=== PATIENT | female | born 1965 | race Hispanic/Latino ===

== ENCOUNTER 2017-04-05 15:44 | Inpatient (IN) | payer SELFPAY ==
[2017-04-05] MEDS ORDERED: NACL 0.9% 500 ML 500 ML IV ONE (16:01)
[2017-04-05 16:53] LABS: Hematocrit 43.6 % (30.3-42.9); Mean Corpuscular HGB Conc 35 % (30-34); Mean Corpuscular Hemoglobin 32 pg (28-32); Mean Corpuscular Volume 93 fl (79-97); Platelet Count 307 K/mm3 (140-440); Red Blood Count 4.69 M/mm3 (3.65-5.03); Red Cell Distribution Width 13.2 % (13.2-15.2)
[2017-04-05 16:57] LABS: White Blood Count 27.3 K/mm3 (4.5-11.0)
[2017-04-05 17:02] LABS: INR 1.08 (0.87-1.13)
[2017-04-05 17:03] LABS: Alanine Aminotransferase 31 units/L (7-56); Albumin 3.6 g/dL (3.9-5); Albumin/Globulin Ratio 0.9 %; Alkaline Phosphatase 112 units/L (35-129); Anion Gap 20 mmol/L; BUN/Creatinine Ratio 24.44; Blood Urea Nitrogen 22 mg/dL (7-17); Calcium 9.9 mg/dL (8.4-10.2); Carbon Dioxide 23 mmol/L (22-30); Chloride 89.7 mmol/L (98-107); Glucose 235 mg/dL (65-100); Potassium 3.1 mmol/L (3.6-5.0); Sodium 130 mmol/L (137-145); Total Protein 7.7 g/dL (6.3-8.2)
[2017-04-05] MEDS ORDERED: NACL 0.9% 1000 ML 1,000 ML IV ONE (17:43)
[2017-04-05] MEDS ORDERED: VANCOMYCIN VIAL IV ONE (17:43)
[2017-04-05] MEDS ORDERED: CLEOCIN 900 MG/50 mL 900 MG/50 ML BAG IV ONE (17:43)
[2017-04-05] MEDS ORDERED: VANCOMYCIN PHARMACY TO DOSE IV SCH (18:00)
--- NOTE | 2017-04-05 18:44 | Cat Scan Report ---
FINAL REPORT EXAM: CT ABDOMEN PELVIS W CON HISTORY: extensive abdominal wall cellulitis/abscess TECHNIQUE: Dynamic helical CT scan through the abdomen and pelvis during and again after intravenous injection of iodinated contrast. Images are reconstructed in the sagittal and coronal planes. Oral contrast was not given. PRIORS: None. FINDINGS: The lung bases are clear. There is edema in the subcutaneous fat of the infraumbilical anterior abdominal wall of especially on the left. There is associated skin thickening. There is no evidence of abscess. There is a an umbilical hernia containing normal appearing fat. There are numerous stones in an otherwise normal-appearing gallbladder. The liver, pancreas, spleen and adrenal glands appear normal. The kidneys appear normal. There is a left ovarian dermoid containing mostly fat but also soft tissue attenuation and tooth like calcification. It measures 8.9 x 7.2 x 8.8 cm. The right ovary and uterus appear normal. The stomach appears grossly within normal limits. There are no abnormally dilated loops of bowel or acute inflammatory changes. A normal-appearing appendix is identified. There is diffuse atherosclerotic calcification in the abdominal aorta without aneurysm. There is advanced degenerative disc disease at L2-3 with severe loss of disc height, endplate sclerosis and osteophyte formation. There is spondylosis of the lower thoracic spine. IMPRESSION: 1. Infraumbilical subcutaneous fat edema and skin thickening is consistent with panniculitis. No evidence of abscess. 2. 8.9 cm left ovarian dermoid 3. Cholelithiasis without evidence of acute cholecystitis 4. Advanced degenerative disc disease at L2-3. 5. Umbilical hernia containing normal appearing fat.
[2017-04-05 18:48] LABS: Anisocytosis 1+; Basophils % (Manual) 0 % (0.0-1.8); Blastocytes % (Manual) 0 %
[2017-04-05 18:49] LABS: Diff Status Complete; Macrocytosis 1+; Platelet Estimate Consistent w Auto
--- NOTE | 2017-04-05 18:49 | Emergency Department Report ---
- General Chief complaint: Skin/Abscess/Foreign Body Stated complaint: SWOLLEN ABSCESS ON ABDOMEN Time Seen by Provider: 04/05/17 17:18 Source: patient, RN notes reviewed Mode of arrival: Ambulatory Limitations: No Limitations - History of Present Illness Initial comments: 51-year-old female presents to the emergency department complaining of possible abscess on her abdomen. Patient states she felt a bump on the left side her abdomen 5 days ago. She states that it began draining. She now reports swelling from the left side of her lower abdomen toward the center of her abdomen. She reports intermittent subjective fever at home. She denies chest pain, difficult breathing, nausea, or vomiting. There are no other complaints. MD complaint: abscess/boil -: Gradual, days(s) (5) Severity: moderate Consistency: constant Improves with: none Worsens with: none Context: none Associated symptoms: fever Treatments Prior to Arrival: none - Related Data Previous Rx's Medication Instructions Recorded Last Taken Type Amoxicillin [Trimox CAP] 500 mg PO Q8H #30 capsule 10/24/14 Unknown Rx Allergies Allergy/AdvReac Type Severity Reaction Status Date / Time latex Allergy Rash Verified 10/24/14 00:15 Abscess Boil HPI - HPI Chief Complaint: Skin/Abscess/Foreign Body Stated Complaint: SWOLLEN ABSCESS ON ABDOMEN Time Seen by Provider: 04/05/17 17:18 Duration: 5 Days Location: Abdomen Severity: Moderate History: Yes Fever Home Medications: Previous Rx's Medication Instructions Recorded Last Taken Type Amoxicillin [Trimox CAP] 500 mg PO Q8H #30 capsule 10/24/14 Unknown Rx Allergies/Adverse Reactions: Allergies Allergy/AdvReac Type Severity Reaction Status Date / Time latex Allergy Rash Verified 10/24/14 00:15 ED Review of Systems ROS: Stated complaint: SWOLLEN ABSCESS ON HAND Other details as noted in HPI Comment: All other systems reviewed and negative Constitutional: fever Gastrointestinal: abdominal pain Skin: as per HPI ED Past Medical Hx - Past Medical History Previous Medical History?: Yes Hx Hypertension: Yes Hx Diabetes: Yes Additional medical history: neuropathy - Surgical History Past Surgical History?: No - Family History Family history: no significant - Social History Smoking Status: Current Every Day Smoker Substance Use Type: Marijuana, Prescribed - Medications Home Medications: Home Medications Medication Instructions Recorded Confirmed Last Taken Type Amoxicillin [Trimox CAP] 500 mg PO Q8H #30 capsule 12/02/14 Unknown Rx ED Physical Exam - General Limitations: No Limitations General appearance: alert, in no apparent distress - Head Head exam: Present: atraumatic, normocephalic - Eye Eye exam: Present: normal appearance, PERRL, EOMI - ENT ENT exam: Present: normal exam, normal orophraynx, mucous membranes moist - Neck Neck exam: Present: normal inspection, full ROM. Absent: tenderness - Respiratory Respiratory exam: Present: normal lung sounds bilaterally. Absent: respiratory distress - Cardiovascular Cardiovascular Exam: Present: normal rhythm, tachycardia, normal heart sounds - GI/Abdominal GI/Abdominal exam: Present: soft, tenderness (mild tenderness to palpation the left lower abdomen), normal bowel sounds. Absent: distended, guarding, rebound - Extremities Exam Extremities exam: Present: normal inspection, full ROM. Absent: tenderness - Back Exam Back exam: Present: normal inspection, full ROM. Absent: tenderness - Neurological Exam Neurological exam: Present: alert, oriented X3. Absent: motor sensory deficit - Skin Skin exam: Present: warm, dry, other (large area of erythema and induration extending from just left of the umbilicus laterally to the left flank. On the lateral aspect of this area of erythema and induration there is an approximately 1.5 cm ulceration. There is no active drainage. Total area of induration measures approximately 12 cm x 40 cm.) ED Course Vital Signs 04/05/17 04/05/17 04/05/17 15:55 17:08 18:18 Temperature 98.2 F 98.6 F Pulse Rate 110 H 104 H Respiratory 20 18 Rate Blood Pressure 127/77 Blood Pressure 114/72 [Right] O2 Sat by Pulse 97 99 99 Oximetry ED Medical Decision Making - Lab Data Result diagrams: 04/05/17 16:29 04/05/17 16:29 - Radiology Data Radiology results: report reviewed, image reviewed CT of abdomen and pelvis reveals infraumbilical subcutaneous fat edema and skin thickening consistent with panniculitis. There is no evidence of abscess. There is an 8.9 cm left ovarian dermoid cyst. Cholelithiasis is noted without evidence of acute cholecystitis. There is also tenderness degenerative disc disease at levels L2 through L3. There is also a small umbilical hernia containing a normal-appearing fat. - Medical Decision Making Lab and imaging results reviewed and discussed with the patient. Blood cultures have been obtained. Patient is being given IV vancomycin and IV clindamycin. Patient is to be admitted by the hospitalist. - Differential Diagnosis cellulitis, abscess Critical care attestation.: If time is entered above; I have spent that time in minutes in the direct care of this critically ill patient, excluding procedure time. ED Disposition Clinical Impression: Cellulitis, abdominal wall Disposition: OP ADMITTED IP TO THIS HOSP Is pt being admited?: Yes Condition: Stable Referrals: PRIMARY CARE, [Primary Care Provider] - 3-5 Days Time of Disposition: 18:53
[2017-04-05] MEDS ORDERED: VANCOMYCIN 2,000 MG in NACL 0.9% 500 ML 500 ML IV ONE (19:00)
--- NOTE | 2017-04-05 19:27 | Admit Criteria Form ---
Admission Criteria Documentation: CELLULITIS Clinical Indications for Admission to Inpatient Care (Place 'X' for any and all applicable criteria): Admission is indicated for ANY ONE of the following(1)(2)(3)(4)(5): [ ]I. Limb-threatening infection [ ]II. High-risk comorbid condition as indicated by ANY ONE of the following: [ ]a) Uncontrolled diabetes (eg, HbA1c greater than 10% (0.1)) [ ]b) Cirrhosis [ ]c) Neutropenia [ ]d) Asplenia [ ]e) Immunosuppression [ ]f) Symptomatic heart failure [ ]III. Failure of outpatient therapy as indicated by ALL of the following: [ ]a) Progression or no improvement after adequate trial (minimum of 48 hours, with longer period for stable lower extremity infection) [ ]b) Adequate antibiotic regimen as indicated by use of ANY ONE of the following: [ ]i) First-generation cephalosporin (e.g., cephalexin) [ ]ii) Antistaphylococcal penicillin (e.g., dicloxacillin) [ ]iii) Penicillin-allergic patient regimen (clindamycin, extended-spectrum fluoroquinolone, or doxycycline) [ ]iv) Resistant organism (eg, methicillin-resistant Staphylococcus aureus) regimen (6) [ ]c) Outpatient intravenous therapy regimen is not appropriate due to ANY ONE of the following. (7)(8)(9)(10): [ ]i) It was tried and was not successful (eg, progression of infection). [ ]ii) It is not available or cannot be arranged in a clinically appropriate time frame (e.g., the next day). [ ]iii) Clinical presentation (eg, acuity of infection, rapidity of progression, confirmed or suspected bacteremia) is judged to require ALL of the following: [ ]1) Immediate initiation of intravenous therapy ( eg, cannot wait for next day) [ ]2) Intensity of patient monitoring and observation (eg, vital sign measurement, checks for infection progression) that cannot be provided at other than inpatient level of care [ ]IV. Mental status changes [ ]V. Bacteremia [ ]. Hemodynamic instability [ ]VII. Suspected necrotizing soft tissue infection (e.g., gas in tissue)(11)( 12) [ ]VIII. Orbital infection (13)(14) [ ]IX. Associated surgical procedure (e.g., abscess drainage, debridement) not amenable to outpatient, emergency department, or observation care [ ]X. Cutaneous gangrene [ ]XI. High fever (temperature greater than 39.5 degrees C (103.1 degrees F) (oral)) not responsive to outpatient, emergency department, or observation care therapy [X ]XIII. Inpatient admission required rather than observation care (Also use Cellulitis: Observation Care as appropriate) because of ANY ONE of the following : [ ]a) Periorbital or perineal infection that is severe or worsening [ ]b) Severe pain requiring acute inpatient management [ ]c) IV fluid to replace significant ongoing (e.g., for over 24 hours) losses (greater than 3L/m2 per day) [ ]d) Compartment syndrome monitoring (17) [ ]e) Strict or protective (eg, laminar flow) isolation [ ]f) Urgent debridement or skin grafting [ ]g) Bone or joint debridement [ ]h) Immediate inpatient surgery [X ]i) Other condition, treatment or monitoring requiring inpatient admission Extended stay beyond goal length of stay may be needed for (1)(18): [ ]a) Necrotizing soft tissue infection or fasciitis [ ]b) Gram-negative infection [ ]c) Methicillin-resistant Staphylococcal aureus (MRSA) infection [ ]d) Peripheral venous insufficiency with cellulitis [ ]e) Extensive edema [ ]f) Sepsis or continued Hemodynamic instability [ ]g) Continued high fever or mental status change [ ]h) Bacteremia [ ]i) Active serious comorbid conditions ( eg, heart failure, renal insufficiency) The original [facility], [facility] content created by [employer] has been revised. The portions of the content which have been revised are identified through the use of italic text or in bold, and [facility] has neither reviewed nor approved the modified material. All other unmodified content is copyright [facility] [employer] Please see references footnoted in the original [facility] [employer] edition 2016 Admission Criteria Met: Yes
[2017-04-05] MEDS ORDERED: TYLENOL PO PRN (19:33)
[2017-04-05] MEDS ORDERED: ZOFRAN IV PRN (19:33)
[2017-04-05] MEDS ORDERED: MILK OF MAGNESIA PO PRN (19:33)
[2017-04-05] MEDS ORDERED: DULCOLAX PR PRN (19:33)
[2017-04-05] MEDS ORDERED: D50W (25GM) IV PRN (19:34)
--- NOTE | 2017-04-05 19:49 | History and Physical Report ---
History of Present Illness Date of examination: 04/05/17 Date of admission: 04/05/2017 Chief complaint: Chief complaint: Abdominal wall redness for 5 days. History of present illness: 51-year-old female with history of type 2 diabetes comes in for left abdominal wall redness for the last 5 days. Initially she noted a small bump on the left flank which is present across the anterior abdominal wall after the right flank. Pain is about 7 on a scale of 1-10. Swelling of the abdominal wall and redness present. Also a small drainage in the left flank region where the infection started. Subjective fever at home. No chest pain. No palpitations. No difficulty breathing. No exacerbating or relieving factors. Review of System: Constitutional: no fever, no chills, no weight loss Ears, eyes, nose, mouth and throat: no nasal congestion, no nasal discharge, no sinus pressure, no vision change, no red eye. Neck: No neck pain or rigidity. Cardiovascular: No chest pain, no orthopnea, no palpitations, no leg swelling Respiratory: No shortness of breath, no cough, no congestion, no wheezing Gastrointestinal: abdominal pain, and abdominal wall redness present. Genitourinary : no dysuria, no hematuria Musculoskeletal: no joint swelling or muscle ache Integumentary: no rash, no pruritis Neurological: no parestthesias, no numbness, no tingling Endocrine: no cold or heat intolerance, no polyuria or polydipsia Hematologic/Lymphatic: no easy bruising, no easy bleeding, no gland swelling Allergic/Immunologic: no urticaria, no angioedema. Past History Past Medical History: diabetes, hypertension, hyperlipidemia Past Surgical History: No surgical history Social history: lives with family, smoking, other (marijuana which was prescribed.) Family history: hypertension Medications and Allergies Allergies Allergy/AdvReac Type Severity Reaction Status Date / Time latex Allergy Rash Verified 10/24/14 00:15 Home Medications Medication Instructions Recorded Confirmed Last Taken Type Amoxicillin [Trimox CAP] 500 mg PO Q8H #30 capsule 10/24/14 Unknown Rx Active Meds: Active Medications Acetaminophen (Tylenol) 650 mg PO Q4H PRN PRN Reason: Pain MILD(1-3)/Fever >100.5/ACOSTA Bisacodyl (Dulcolax) 10 mg VT QDAY PRN PRN Reason: Constipation unrelieved by MOM Dextrose (D50w (25gm)) 50 ml IV PRN PRN PRN Reason: Hypoglycemia Hydromorphone HCl (Dilaudid) 1 mg IV Q3H PRN PRN Reason: Pain , Severe (7-10) Vancomycin HCl 2,000 mg/ (Sodium Chloride) 540 mls @ 250 mls/hr IV ONCE.ED ONE Stop: 04/05/17 21:09 Vancomycin HCl 1,250 mg/ (Sodium Chloride) 275 mls @ 137.5 mls/hr IV Q12H ELROY Sodium Chloride (Nacl 0.45% 1000 Ml) 1,000 mls @ 75 mls/hr IV DIRECT ELROY Stop: 04/06/17 16:00 Clindamycin HCl (Cleocin 900 Mg/50 Ml) 900 mg in 50 mls @ 100 mls/hr IV Q8H ELROY PRN Reason: Protocol Levofloxacin/Dextrose (Levaquin 750mg/150ml) 750 mg in 150 mls @ 100 mls/hr IV Q24HR ELROY PRN Reason: Protocol Insulin Aspart (Novolog) 0 units SUB-Q ACHS ELROY PRN Reason: Protocol Magnesium Hydroxide (Milk Of Magnesia) 30 ml PO Q4H PRN PRN Reason: Constipation Ondansetron HCl (Zofran) 4 mg IV Q8H PRN PRN Reason: N/V unrelieved by Reglan Potassium Chloride (K-Dur) 40 meq PO ONCE ONE Stop: 04/05/17 19:43 Vancomycin HCl (Vancomycin Pharmacy To Dose) 1 each IV PKCONSULT ELROY PRN Reason: Protocol Exam - Physical Exam Narrative exam: Middle-aged female obese lying in bed comfortably. Answers questions appropriately. - Constitutional Vitals: Temp Pulse Resp BP Pulse Ox 98.6 F 104 H 18 114/72 99 04/05/17 17:08 04/05/17 17:08 04/05/17 17:08 04/05/17 17:08 04/05/17 18:18 General appearance: Present: no acute distress, well-nourished - EENT Eyes: Present: PERRL ENT: hearing intact, clear oral mucosa - Neck Neck: Present: supple, normal ROM - Respiratory Respiratory effort: normal Respiratory: bilateral: CTA - Cardiovascular Heart rate: 78 Rhythm: regular Heart Sounds: Present: S1 & S2. Absent: rub, click - Extremities Extremities: no ischemia, pulses intact, pulses symmetrical, No edema, normal temperature, normal color, Full ROM Peripheral Pulses: within normal limits - Abdominal General gastrointestinal: Present: tender, non-distended, normal bowel sounds, other (abdominal wall redness present from the left flank extending up to the right flank. Measuring about 20 cm and to 40 cm. There is a small drainage place on the left flank no active pus coming out.) Female genitourinary: Present: normal - Integumentary Integumentary: Present: clear, warm, dry - Musculoskeletal Musculoskeletal: gait normal, strength equal bilaterally - Psychiatric Psychiatric: appropriate mood/affect, intact judgment & insight - Neurologic Neurologic: CNII-XII intact, moves all extremities Results - Labs CBC & Chem 7: 04/05/17 16:29 04/05/17 16:29 Labs: Laboratory Last Values WBC 27.3 K/mm3 (4.5-11.0) H 04/05/17 16:29 RBC 4.69 M/mm3 (3.65-5.03) 04/05/17 16:29 Hgb 15.0 gm/dl (10.1-14.3) H 04/05/17 16:29 Hct 43.6 % (30.3-42.9) H 04/05/17 16:29 MCV 93 fl (79-97) 04/05/17 16:29 MCH 32 pg (28-32) 04/05/17 16:29 MCHC 35 % (30-34) H 04/05/17 16:29 RDW 13.2 % (13.2-15.2) 04/05/17 16:29 Plt Count 307 K/mm3 (140-440) 04/05/17 16:29 Add Manual Diff Complete 04/05/17 16:29 Total Counted 200 04/05/17 16:29 Seg Neuts % (Manual) 91.0 % (40.0-70.0) H 04/05/17 16:29 Band Neutrophils % 0 % 04/05/17 16:29 Lymphocytes % (Manual) 1.0 % (13.4-35.0) L 04/05/17 16:29 Reactive Lymphs % (Man) 0 % 04/05/17 16:29 Monocytes % (Manual) 7.0 % (0.0-7.3) 04/05/17 16:29 Eosinophils % (Manual) 1.0 % (0.0-4.3) 04/05/17 16:29 Basophils % (Manual) 0 % (0.0-1.8) 04/05/17 16:29 Metamyelocytes % 0 % 04/05/17 16: Myelocytes % 0 % 04/05/17 16: Promyelocytes % 0 % 04/05/17 16:29 Blast Cells % 0 % 04/05/17 16:29 Nucleated RBC % Not Reportable 04/05/17 16:29 Seg Neutrophils # Man 24.8 K/mm3 (1.8-7.7) H 04/05/17 16:29 Band Neutrophils # 0.0 K/mm3 04/05/17 16:29 Lymphocytes # (Manual) 0.3 K/mm3 (1.2-5.4) L 04/05/17 16:29 Abs React Lymphs (Man) 0.0 K/mm3 04/05/17 16:29 Monocytes # (Manual) 1.9 K/mm3 (0.0-0.8) H 04/05/17 16:29 Eosinophils # (Manual) 0.3 K/mm3 (0.0-0.4) 04/05/17 16:29 Basophils # (Manual) 0.0 K/mm3 (0.0-0.1) 04/05/17 16:29 Metamyelocytes # 0.0 K/mm3 04/05/17 16:29 Myelocytes # 0.0 K/mm3 04/05/17 16:29 Promyelocytes # 0.0 K/mm3 04/05/17 16:29 Blast Cells # 0.0 K/mm3 04/05/17 16:29 WBC Morphology Not Reportable 04/05/17 16:29 Hypersegmented Neuts Not Reportable 04/05/17 16:29 Hyposegmented Neuts Not Reportable 04/05/17 16:29 Hypogranular Neuts Not Reportable 04/05/17 16:29 Smudge Cells Not Reportable 04/05/17 16:29 Toxic Granulation Not Reportable 04/05/17 16:29 Toxic Vacuolation Not Reportable 04/05/17 16:29 Dohle Bodies Not Reportable 04/05/17 16:29 Pelger-Huet Anomaly Not Reportable 04/05/17 16:29 Rosa Rods Not Reportable 04/05/17 16:29 Platelet Estimate Consistent w auto 04/05/17 16:29 Clumped Platelets Not Reportable 04/05/17 16:29 Plt Clumps, EDTA Not Reportable 04/05/17 16:29 Large Platelets Not Reportable 04/05/17 16:29 Giant Platelets Not Reportable 04/05/17 16:29 Platelet Satelliting Not Reportable 04/05/17 16:29 Plt Morphology Comment Not Reportable 04/05/17 16:29 RBC Morphology Not Reportable 04/05/17 16:29 Dimorphic RBCs Not Reportable 04/05/17 16:29 Polychromasia Not Reportable 04/05/17 16:29 Hypochromasia Not Reportable 04/05/17 16:29 Poikilocytosis Not Reportable 04/05/17 16:29 Anisocytosis 1+ 04/05/17 16:29 Microcytosis Not Reportable 04/05/17 16:29 Macrocytosis 1+ 04/05/17 16:29 Spherocytes Not Reportable 04/05/17 16:29 Pappenheimer Bodies Not Reportable 04/05/17 16:29 Sickle Cells Not Reportable 04/05/17 16:29 Target Cells Not Reportable 04/05/17 16:29 Tear Drop Cells Not Reportable 04/05/17 16:29 Ovalocytes Not Reportable 04/05/17 16:29 Helmet Cells Not Reportable 04/05/17 16:29 [place] Bodies Not Reportable 04/05/17 16:29 [place] Rings Not Reportable 04/05/17 16:29 Gail Cells Not Reportable 04/05/17 16:29 Bite Cells Not Reportable 04/05/17 16:29 Crenated Cell Not Reportable 04/05/17 16:29 Elliptocytes Not Reportable 04/05/17 16:29 Acanthocytes (Spur) Not Reportable 04/05/17 16:29 Rouleaux Not Reportable 04/05/17 16:29 Hemoglobin C Crystals Not Reportable 04/05/17 16:29 Schistocytes Not Reportable 04/05/17 16:29 Malaria parasites Not Reportable 04/05/17 16:29 Umesh Bodies Not Reportable 04/05/17 16:29 Hem Pathologist Commnt No 04/05/17 16:29 PT 13.9 Sec. (12.2-14.9) 04/05/17 16:29 INR 1.08 (0.87-1.13) 04/05/17 16:29 VBG pH 7.380 (7.320-7.420) 04/05/17 16:29 Sodium 130 mmol/L (137-145) L 04/05/17 16:29 Potassium 3.1 mmol/L (3.6-5.0) L 04/05/17 16:29 Chloride 89.7 mmol/L (98-107) L 04/05/17 16:29 Carbon Dioxide 23 mmol/L (22-30) 04/05/17 16:29 Anion Gap 20 mmol/L 04/05/17 16:29 BUN 22 mg/dL (7-17) H 04/05/17 16:29 Creatinine 0.9 mg/dL (0.7-1.2) 04/05/17 16:29 Estimated GFR > 60 ml/min 04/05/17 16:29 BUN/Creatinine Ratio 24.44 % 04/05/17 16:29 Glucose 235 mg/dL (65-100) H 04/05/17 16:29 Lactic Acid 1.60 mmol/L (0.7-2.0) 04/05/17 16:29 Calcium 9.9 mg/dL (8.4-10.2) 04/05/17 16:29 Total Bilirubin 1.10 mg/dL (0.1-1.2) 04/05/17 16:29 AST 25 units/L (5-40) 04/05/17 16:29 ALT 31 units/L (7-56) 04/05/17 16:29 Alkaline Phosphatase 112 units/L (35-129) 04/05/17 16:29 Total Protein 7.7 g/dL (6.3-8.2) 04/05/17 16:29 Albumin 3.6 g/dL (3.9-5) L 04/05/17 16:29 Albumin/Globulin Ratio 0.9 % 04/05/17 16:29 Short CBC 04/05/17 Range/Units 16:29 WBC 27.3 H (4.5-11.0) K/mm3 Hgb 15.0 H (10.1-14.3) gm/dl Hct 43.6 H (30.3-42.9) % Plt Count 307 (140-440) K/mm3 [facility] 04/05/17 16:29 Sodium 130 L Potassium 3.1 L Chloride 89.7 L Carbon Dioxide 23 BUN 22 H Creatinine 0.9 Glucose 235 H Calcium 9.9 Liver Function 04/05/17 Range/Units 16:29 Total Bilirubin 1.10 (0.1-1.2) mg/dL AST 25 (5-40) units/L ALT 31 (7-56) units/L Alkaline Phosphatase 112 (35-129) units/L Albumin 3.6 L (3.9-5) g/dL - Imaging and Cardiology CT scan - abdomen: report reviewed (CT of abdomen showed no evidence of abscess. Infraumbilical subcutaneous fat edema and skin thickening consistent with panniculitis. 8.9 cm left ovarian dermoid cyst. Cholelithiasis without evidence of acute cholecystitis. Degenerative disc disease L2 through L3.) Assessment and Plan Assessment and plan: Assessment and gloria: 1. Abdominal wall cellulitis: Patient has severe redness of the anterior abdominal wall extending from left flank to right flank. Small drainage placed in the left flank present. No active pus coming out. Tender to touch. Indurated skin. Patient started on vancomycin IV and IV clindamycin and IV Levaquin. Patient has leukocytosis. Blood cultures and wound cultures ordered. Surgical consult ordered. No evidence of abscess on CT abdomen. 2. Type 2 diabetes mellitus: Patient initiated on metformin and insulin coverage. Check hemoglobin A1c. We will add insulin or oral hypoglycemics at the time of discharge depending on her blood glucose levels. 3. Hypertension: Initially blood pressure medication if blood pressure running high. Patient not on any blood pressure medications at this time. 4. Obesity: Patient counseled. 5. DVT prophylaxis: Lovenox 40 mg subcutaneous daily. Advance Directives: Yes (full code) VTE prophylaxis?: Chemical Plan of care discussed with patient/family: Yes
[2017-04-05] MEDS ORDERED: K-DUR PO ONE (20:00)
[2017-04-05] MEDS ORDERED: NACL 0.45% 1000 ML 1,000 ML IV SCH (20:00)
[2017-04-05] MEDS ORDERED: LEVAQUIN 750MG/150ML 750 MG/150 ML BAG IV SCH (21:00)
[2017-04-06] MEDS: NOVOLOG SUB-Q SCH ×5 (00:26→22:35)
[2017-04-06] MEDS: CLEOCIN 900 MG/50 mL 900 MG/50 ML BAG IV SCH ×4 (01:01→22:34)
[2017-04-06] MEDS ORDERED: VANCOMYCIN 1,250 MG in NACL 0.9% 250ML 250 ML IV SCH (06:00)
[2017-04-06 06:42] LABS: Hematocrit 37.8 % (30.3-42.9); Hemoglobin 12.9 gm/dl (10.1-14.3); Mean Corpuscular HGB Conc 34 % (30-34); Mean Corpuscular Hemoglobin 32 pg (28-32); Mean Corpuscular Volume 92 fl (79-97); Platelet Count 253 K/mm3 (140-440)
[2017-04-06 06:45] LABS: White Blood Count 21.1 K/mm3 (4.5-11.0)
[2017-04-06 07:01] LABS: Alanine Aminotransferase 37 units/L (7-56); Albumin/Globulin Ratio 0.8 %; Alkaline Phosphatase 104 units/L (35-129); Anion Gap 17 mmol/L; Blood Urea Nitrogen 15 mg/dL (7-17); Calcium 9.1 mg/dL (8.4-10.2); Carbon Dioxide 25 mmol/L (22-30); Chloride 90.1 mmol/L (98-107); Glucose 123 mg/dL (65-100); Potassium 3.1 mmol/L (3.6-5.0); Sodium 129 mmol/L (137-145); Total Protein 6.6 g/dL (6.3-8.2)
--- NOTE | 2017-04-06 07:12 | XRay Report ---
Single view chest: History: Possible sepsis. Findings: Normal cardiomediastinal silhouette. Trachea is midline. No consolidation, pneumothorax or pleural effusion. Impression: No acute cardiopulmonary findings.
--- NOTE | 2017-04-06 09:04 | Progress Note ---
Assessment and Plan Assessment and plan: 51-year-old woman with past medical history hypertension diabetes and hyperlipidemia who presented with left-sided abdominal wall swelling drainage and pain. Found to have left abdominal wall panniculitis. 1. Sepsis Patient met sepsis criteria, continue sepsis protocol, continue IV fluids, continue IV antibiotics. 2. Left abdominal wall panniculitis Continue IV antibiotics,, continue Levaquin and clindamycin, discontinue vancomycin today. Follow-up surgery consults Infectious disease consult 3. Type 2 diabetes Continue metformin, continue insulin sliding scale 4. Hyponatremia Continue normal saline IV fluids 5. Hypokalemia Has been repleted, we'll recheck. DVT prophylaxis: Lovenox History Interval history: Continues to complain of left-sided abdominal wall swelling, pain which is dull 4 out of 10, exacerbated by laying on it, relieved by pain medications. Denies fever, denies chills denies any significant drainage today. Hospitalist Physical - Physical exam Narrative exam: General: Patient appears well in no distress HEENT: MMM, EOMI cardiac: S1-S2 heard lungs: clear to auscultation, abdomen: soft, nontender, nondistended bowel sounds positive extremities: no edema clubbing or cyanosis Skin: abdominal wall swelling, erythema and tenderness involving the entire pannus, no drainage, no open wounds Neuro: no focal deficit Psych: appropriate behavior and mood, cognition intact - Constitutional Vitals: Temp Pulse Resp BP Pulse Ox 99.9 F H 109 H 20 123/58 95 04/05/17 23:50 04/05/17 23:50 04/05/17 23:50 04/05/17 23:50 04/05/17 23:50 General appearance: Present: no acute distress, well-nourished Results - Labs CBC & Chem 7: 04/06/17 05:14 04/06/17 05:14 Labs: Laboratory Last Values WBC 21.1 K/mm3 (4.5-11.0) H 04/06/17 05:14 RBC 4.10 M/mm3 (3.65-5.03) 04/06/17 05:14 Hgb 12.9 gm/dl (10.1-14.3) 04/06/17 05:14 Hct 37.8 % (30.3-42.9) 04/06/17 05:14 MCV 92 fl (79-97) 04/06/17 05:14 MCH 32 pg (28-32) 04/06/17 05:14 MCHC 34 % (30-34) 04/06/17 05:14 RDW 13.0 % (13.2-15.2) L 04/06/17 05:14 Plt Count 253 K/mm3 (140-440) 04/06/17 05:14 Add Manual Diff Complete 04/05/17 16:29 Total Counted 200 04/05/17 16:29 Seg Neuts % (Manual) 91.0 % (40.0-70.0) H 04/05/17 16:29 Band Neutrophils % 0 % 04/05/17 16:29 Lymphocytes % (Manual) 1.0 % (13.4-35.0) L 04/05/17 16:29 Reactive Lymphs % (Man) 0 % 04/05/17 16:29 Monocytes % (Manual) 7.0 % (0.0-7.3) 04/05/17 16:29 Eosinophils % (Manual) 1.0 % (0.0-4.3) 04/05/17 16:29 Basophils % (Manual) 0 % (0.0-1.8) 04/05/17 16:29 Metamyelocytes % 0 % 04/05/17 16:29 Myelocytes % 0 % 04/05/17 16:29 Promyelocytes % 0 % 04/05/17 16:29 Blast Cells % 0 % 04/05/17 16:29 Nucleated RBC % Not Reportable 04/05/17 16:29 Seg Neutrophils # Man 24.8 K/mm3 (1.8-7.7) H 04/05/17 16:29 Band Neutrophils # 0.0 K/mm3 04/05/17 16:29 Lymphocytes # (Manual) 0.3 K/mm3 (1.2-5.4) L 04/05/17 16:29 Abs React Lymphs (Man) 0.0 K/mm3 04/05/17 16:29 Monocytes # (Manual) 1.9 K/mm3 (0.0-0.8) H 04/05/17 16:29 Eosinophils # (Manual) 0.3 K/mm3 (0.0-0.4) 04/05/17 16:29 Basophils # (Manual) 0.0 K/mm3 (0.0-0.1) 04/05/17 16:29 Metamyelocytes # 0.0 K/mm3 04/05/17 16:29 Myelocytes # 0.0 K/mm3 04/05/17 16:29 Promyelocytes # 0.0 K/mm3 04/05/17 16:29 Blast Cells # 0.0 K/mm3 04/05/17 16:29 WBC Morphology Not Reportable 04/05/17 16:29 Hypersegmented Neuts Not Reportable 04/05/17 16:29 Hyposegmented Neuts Not Reportable 04/05/17 16:29 Hypogranular Neuts Not Reportable 04/05/17 16:29 Smudge Cells Not Reportable 04/05/17 16:29 Toxic Granulation Not Reportable 04/05/17 16:29 Toxic Vacuolation Not Reportable 04/05/17 16:29 Dohle Bodies Not Reportable 04/05/17 16:29 Pelger-Huet Anomaly Not Reportable 04/05/17 16:29 Rosa Rods Not Reportable 04/05/17 16:29 Platelet Estimate Consistent w auto 04/05/17 16:29 Clumped Platelets Not Reportable 04/05/17 16:29 Plt Clumps, EDTA Not Reportable 04/05/17 16:29 Large Platelets Not Reportable 04/05/17 16:29 Giant Platelets Not Reportable 04/05/17 16:29 Platelet Satelliting Not Reportable 04/05/17 16:29 Plt Morphology Comment Not Reportable 04/05/17 16:29 RBC Morphology Not Reportable 04/05/17 16:29 Dimorphic RBCs Not Reportable 04/05/17 16:29 Polychromasia Not Reportable 04/05/17 16:29 Hypochromasia Not Reportable 04/05/17 16:29 Poikilocytosis Not Reportable 04/05/17 16:29 Anisocytosis 1+ 04/05/17 16:29 Microcytosis Not Reportable 04/05/17 16:29 Macrocytosis 1+ 04/05/17 16:29 Spherocytes Not Reportable 04/05/17 16:29 Pappenheimer Bodies Not Reportable 04/05/17 16:29 Sickle Cells Not Reportable 04/05/17 16:29 Target Cells Not Reportable 04/05/17 16:29 Tear Drop Cells Not Reportable 04/05/17 16:29 Ovalocytes Not Reportable 04/05/17 16:29 Helmet Cells Not Reportable 04/05/17 16:29 [place] Bodies Not Reportable 04/05/17 16:29 Calvin Rings Not Reportable 04/05/17 16:29 Mobile Cells Not Reportable 04/05/17 16:29 Bite Cells Not Reportable 04/05/17 16:29 Crenated Cell Not Reportable 04/05/17 16:29 Elliptocytes Not Reportable 04/05/17 16:29 Acanthocytes (Spur) Not Reportable 04/05/17 16:29 Rouleaux Not Reportable 04/05/17 16:29 Hemoglobin C Crystals Not Reportable 04/05/17 16:29 Schistocytes Not Reportable 04/05/17 16:29 Malaria parasites Not Reportable 04/05/17 16:29 Umesh Bodies Not Reportable 04/05/17 16:29 Hem Pathologist Commnt No 04/05/17 16:29 PT 13.9 Sec. (12.2-14.9) 04/05/17 16:29 INR 1.08 (0.87-1.13) 04/05/17 16:29 VBG pH 7.380 (7.320-7.420) 04/05/17 16:29 Sodium 129 mmol/L (137-145) L 04/06/17 05:14 Potassium 3.1 mmol/L (3.6-5.0) L 04/06/17 05:14 Chloride 90.1 mmol/L (98-107) L 04/06/17 05:14 Carbon Dioxide 25 mmol/L (22-30) 04/06/17 05:14 Anion Gap 17 mmol/L 04/06/17 05:14 BUN 15 mg/dL (7-17) 04/06/17 05:14 Creatinine 0.6 mg/dL (0.7-1.2) L 04/06/17 05:14 Estimated GFR > 60 ml/min 04/06/17 05:14 BUN/Creatinine Ratio 25.00 % 04/06/17 05:14 Glucose 123 mg/dL (65-100) H 04/06/17 05:14 POC Glucose 125 (70-105) H 04/06/17 05:58 Hemoglobin A1c 6.7 % (4-6) H 04/05/17 16:29 Lactic Acid 1.60 mmol/L (0.7-2.0) 04/05/17 19:18 Calcium 9.1 mg/dL (8.4-10.2) 04/06/17 05:14 Total Bilirubin 0.90 mg/dL (0.1-1.2) 04/06/17 05:14 AST 27 units/L (5-40) 04/06/17 05:14 ALT 37 units/L (7-56) 04/06/17 05:14 Alkaline Phosphatase 104 units/L (35-129) 04/06/17 05:14 Total Protein 6.6 g/dL (6.3-8.2) 04/06/17 05:14 Albumin 3.0 g/dL (3.9-5) L 04/06/17 05:14 Albumin/Globulin Ratio 0.8 % 04/06/17 05:14 - Imaging and Cardiology CT scan - abdomen: image reviewed (abdominal wall edema consistent with cellulitis)
[2017-04-06 09:31] LABS: Basophils % (Manual) 0 % (0.0-1.8); Blastocytes % (Manual) 0 %; Eosinophils % (Manual) 0 % (0.0-4.3)
[2017-04-06 09:32] LABS: Anisocytosis 1+; Diff Status Complete; Platelet Estimate Cons
--- NOTE | 2017-04-06 14:58 | Consultation ---
History of Present Illness - Reason for Consult Consult date: 04/06/17 Cellulitis - History of Present Illness Ms. Anderson is a 51-year-old woman with DM2 (a1c ~6%) who presented with abdominal wall cellulitis. She describes an ample abdominal pannus s/p significant weight loss over several years. She has occasional "numbness" along her abdominal wall as a result. She does not recall a specific injury to her abdomen, but says she felt "something like a boil" at her left flank. Over the subsequent 1-2 days, she developed marked erythema and edema over the left lower abdominal wall. She presented here for assessment. A CT pelvis showed panniculitis with no overt abscess. She is on empiric Vancomycin, Levaquin and Clindamycin with significant improvement of local swelling. She describes local pain, but denies vesicles or blisters. Past History Past Medical History: diabetes, hypertension, hyperlipidemia Past Surgical History: No surgical history Social history: lives with family, smoking, other (marijuana which was prescribed.) Family history: hypertension Medications and Allergies Allergies Allergy/AdvReac Type Severity Reaction Status Date / Time latex Allergy Rash Verified 10/24/14 00:15 Home Medications Medication Instructions Recorded Confirmed Last Taken Type Amoxicillin [Trimox CAP] 500 mg PO Q8H #30 capsule 10/24/14 04/06/17 09/01/16 Rx 500 Active Meds: Active Medications Acetaminophen (Tylenol) 650 mg PO Q4H PRN PRN Reason: Pain MILD(1-3)/Fever >100.5/ACOSTA Last Admin: 04/06/17 09:45 Dose: 650 mg Bisacodyl (Dulcolax) 10 mg IA QDAY PRN PRN Reason: Constipation unrelieved by MOM Dextrose (D50w (25gm)) 50 ml IV PRN PRN PRN Reason: Hypoglycemia Enoxaparin Sodium (Lovenox) 40 mg SUB-Q QDAY@2200 [facility] Hydromorphone HCl (Dilaudid) 1 mg IV Q3H PRN PRN Reason: Pain , Severe (7-10) Sodium Chloride (Nacl 0.45% 1000 Ml) 1,000 mls @ 75 mls/hr IV DIRECT [facility] Stop: 04/06/17 16:00 Last Admin: 04/06/17 00:23 Dose: 75 mls/hr Clindamycin HCl (Cleocin 900 Mg/50 Ml) 900 mg in 50 mls @ 100 mls/hr IV Q8H [facility] PRN Reason: Protocol Last Admin: 04/06/17 06:01 Dose: Not Given Levofloxacin/Dextrose (Levaquin 750mg/150ml) 750 mg in 150 mls @ 100 mls/hr IV Q24H [facility] PRN Reason: Protocol Last Admin: 04/06/17 01:15 Dose: 100 mls/hr Insulin Aspart (Novolog) 0 units SUB-Q ACHS [facility] PRN Reason: Protocol Last Admin: 04/06/17 07:52 Dose: Not Given Magnesium Hydroxide (Milk Of Magnesia) 30 ml PO Q4H PRN PRN Reason: Constipation Ondansetron HCl (Zofran) 4 mg IV Q8H PRN PRN Reason: N/V unrelieved by Felice Last Admin: 04/05/17 22:17 Dose: 4 mg Review of Systems All systems: negative ((all other systems reviewed and negative except noted below):) Constitutional: no fever, no chills, no sweats Cardiovascular: no chest pain, no shortness of breath Respiratory: no cough Gastrointestinal: abdominal pain (abdominal wall pain), no nausea, no vomiting, no diarrhea Genitourinary Female: no dysuria Integumentary: no rash, no pruritis Physical Examination - Constitutional Vitals: Vital Signs Temp Pulse Resp BP Pulse Ox 99.1 F 99 H 20 111/59 95 04/06/17 08:00 04/06/17 08:00 04/06/17 08:00 04/06/17 08:00 04/06/17 08:00 Temperature -Last 24 Hours Temperature 99.1 F Temperature 99.9 F Temperature 98.6 F Temperature 98.4 F General appearance: Present: no acute distress, obese - Neck Neck: Present: supple - Respiratory Respiratory effort: normal Respiratory: bilateral: CTA - Cardiovascular Rhythm: regular Heart Sounds: Present: S1 & S2 - Extremities Extremities: No edema - Abdominal General gastrointestinal: Present: soft, normal bowel sounds, other (large abdominal pannus with mild induration and resolving erythema over the left lower quadrant/ flank, crosses umbilical midline slightly; two discrete and resolving pustules, no vesicles or local necrosis seen) - Integumentary Integumentary: Absent: rash - Psychiatric Psychiatric: appropriate mood/affect Results - Labs CBC & Chem 7: 04/06/17 05:14 04/06/17 05:14 Labs: Abnormal lab results 04/05/17 04/06/17 04/06/17 Range/Units 21:57 05:14 05:14 WBC 21.1 H (4.5-11.0) K/mm3 RDW 13.0 L (13.2-15.2) % Seg Neuts % (Manual) 90.0 H (40.0-70.0) % Lymphocytes % (Manual) 2.0 L (13.4-35.0) % Seg Neutrophils # Man 19.0 H (1.8-7.7) K/mm3 Lymphocytes # (Manual) 0.4 L (1.2-5.4) K/mm3 Monocytes # (Manual) 1.5 H (0.0-0.8) K/mm3 Sodium 129 L (137-145) mmol/L Potassium 3.1 L (3.6-5.0) mmol/L Chloride 90.1 L (98-107) mmol/L Creatinine 0.6 L (0.7-1.2) mg/dL Glucose 123 H (65-100) mg/dL POC Glucose 173 H (70-105) Albumin 3.0 L (3.9-5) g/dL 04/06/17 Range/Units 05:58 WBC (4.5-11.0) K/mm3 RDW (13.2-15.2) % Seg Neuts % (Manual) (40.0-70.0) % Lymphocytes % (Manual) (13.4-35.0) % Seg Neutrophils # Man (1.8-7.7) K/mm3 Lymphocytes # (Manual) (1.2-5.4) K/mm3 Monocytes # (Manual) (0.0-0.8) K/mm3 Sodium (137-145) mmol/L Potassium (3.6-5.0) mmol/L Chloride (98-107) mmol/L Creatinine (0.7-1.2) mg/dL Glucose (65-100) mg/dL POC Glucose 125 H (70-105) Albumin (3.9-5) g/dL Microbiology 04/05/17 17:18 Peripheral/Venous Blood Culture - Preliminary Culture in Progress 04/05/17 16:29 Peripheral/Venous Blood Culture - Preliminary Culture in Progress - Imaging and Cardiology Chest x-ray: report reviewed (no acute process) CT scan - abdomen: report reviewed (infraumbilical panniculitis; cholelithiasis without cholecystitis) Assessment and Plan - Patient Problems (1) Cellulitis, abdominal wall Current Visit: Yes Status: Acute Plan to address problem: 1. Continue Vancomycin and Clindamycin for now. Will discontinue Levaquin. 2. Await results of blood culture. 3. Anticipate oral Doxycycline 100mg PO BID and topical Clinda gel to abdominal wall for a duration of 7 days. 4. I discussed potential side effects of Doxycycline and advised patient to take pills with water and avoid direct, prolonged sunlight while taking. 5. Zoster sine herpete considered, but patient notes significant improvement with current antimicrobials.
[2017-04-06] MEDS: NACL 0.9% 1000 ML 1,000 ML IV SCH (17:29)
--- NOTE | 2017-04-06 19:37 | Consultation ---
HISTORY OF PRESENT ILLNESS: I was called by Dr. Rosas to see this patient. She is a 51-year-old white female. She is a known case of diabetes for the last 7 to 8 years. She is on metformin 1 g every day. She came because of pain to the lower abdomen for about 5 to 7 days duration. It is bothering her and she felt feverish. She never had this before. She never had any abdominal operations. Allergic reactions were denied. PHYSICAL EXAMINATION: GENERAL: Showed a well-preserved, obese white female. She is in no distress. She is on some pain, however, to the lower abdomen below the umbilicus on both sides. HEAD AND NECK: Essentially negative. BREASTS: Symmetric. No evidence of specific masses. CHEST: Essentially clear. HEART: Sounds normal. ABDOMEN: Protuberant, soft, benign looking to me superiorly, and inferiorly she had a large area from the mid axillary line to the other side with severe tenderness and redness. There is no evidence of any gross infection. She has a small laceration barely about 0.5 cm on the left side. I could not feel anything specific otherwise of diffuse tenderness, no evidence for any specific masses. EXTREMITIES: Showed no significant edema. IMPRESSION: Severe cellulitis. I doubt whether there is any necrotizing fasciitis element, exogenous obesity, diabetes mellitus, mid abdominal hernia seen on the CAT scan. PLAN: We will adjust antibiotics as per Infectious Disease. Dr. Miles was called to see her and I did indicate to the patient that if there is nothing surgical would just press on with the antibiotics and go from there. On the CAT scan, we did see some stones in the gallbladder. JOB# [id number] RBK/NTS
[2017-04-06] MEDS ORDERED: LOVENOX SUB-Q SCH (22:00)
[2017-04-07] MEDS: DILAUDID IV PRN ×2 (05:02→12:09)
[2017-04-07] MEDS: CLEOCIN 900 MG/50 mL 900 MG/50 ML BAG IV SCH ×2 (05:38→14:40)
[2017-04-07] MEDS: NACL 0.9% 1000 ML 1,000 ML IV SCH (05:39)
[2017-04-07 05:47] LABS: Hematocrit 35.6 % (30.3-42.9); Mean Corpuscular HGB Conc 34 % (30-34); Mean Corpuscular Hemoglobin 31 pg (28-32); Mean Corpuscular Volume 93 fl (79-97); Platelet Count 285 K/mm3 (140-440); Red Blood Count 3.83 M/mm3 (3.65-5.03); White Blood Count 19.7 K/mm3 (4.5-11.0)
[2017-04-07 05:47] LABS: Urine Drugs of Abuse Note Disclamer
[2017-04-07 05:56] LABS: Anion Gap 17 mmol/L; BUN/Creatinine Ratio 23.33; Blood Urea Nitrogen 14 mg/dL (7-17); Carbon Dioxide 26 mmol/L (22-30); Chloride 97.2 mmol/L (98-107); Glucose 107 mg/dL (65-100); Potassium 3.2 mmol/L (3.6-5.0); Sodium 137 mmol/L (137-145)
[2017-04-07 06:30] LABS: Bacteria,Urine 1+ /HPF (Negative); Bilirubin,Urine NEG (Negative); Blood,Urine LG (Negative); Ketones,Urine NEG (Negative); Leukocyte Esterase,Urine TR (Negative); Mucus,Urine FEW /HPF; Nitrite,Urine NEG (Negative); Protein,Urine <15 mg/dL mg/dL (Negative)
[2017-04-07 07:30] LABS: Blastocytes % (Manual) 0 %; Eosinophils % (Manual) 0 % (0.0-4.3)
[2017-04-07 07:31] LABS: Anisocytosis 1+; Diff Status Complete; Hypochromasia Few
[2017-04-07] MEDS ORDERED: K-DUR PO ONE ×2 (08:00→12:00)
[2017-04-07] MEDS: NOVOLOG SUB-Q SCH ×3 (08:36→18:09)
--- NOTE | 2017-04-07 08:51 | XRay Report ---
KUB. History: Abdominal pain/cellulitis. Findings: The bowel gas pattern is unremarkable. No mass effect, organomegaly, or significant calcifications are seen. Discogenic changes are seen in the lumbar spine. Impression: No acute findings.
[2017-04-07] MEDS ORDERED: MAGNESIUM SULFATE 1 GM in NACL 0.9% 50 ML IV ONE (09:00)
--- NOTE | 2017-04-07 11:43 | Discharge Summary ---
Providers - Providers Date of Admission: 04/05/17 18:53 Attending physician: HUGO ESTEVEZ MD 04/05/17 19:34 Consult to Physician [CONS] Routine Consulting Provider: NICO OBREGON Reason For Exam: Abdominal wall abscess Place consult to:: DR. OBREGON Notified:: OFFICE Phone number called:: [phone] Was contact made?: Yes If yes, spoke with:: RAVIN Time called:: 09:34 Comment:: ESTHELA PAYNE 04/05/17 19:36 Consult to Dietitian/Nutrition [CONS] Routine Physician Instructions: Reason For Exam: Reason for Consult: Diet education 04/06/17 06:08 Consult to Wound/ET Nurse [CONS] Routine Reason For Exam: wound eval 04/06/17 09:06 Consult to Physician [CONS] Routine Consulting Provider: STANISLAV FRAGOSO Reason For Exam: panniculitis/sepsis Place consult to:: Notified:: DR. FRAGOSO Phone number called:: [phone] Was contact made?: Yes If yes, spoke with:: DR. FRAGOSO Time called:: 10:02 Comment:: VIKY PAYNE Primary care physician: TRAVEL PTA Hospitalization Condition: Stable Hospital course: 51-year-old woman with past medical history hypertension diabetes and hyperlipidemia who presented with left-sided abdominal wall swelling drainage and pain. Found to have left abdominal wall panniculitis. She was treated with IV antibiotics, she clinically improved and was changed to oral and topical antibiotics. Urine drug she was positive for amphetamine, cocaine and marijuana. Patient was counseled about drug use, she refused to discuss this topic with the physicians. With regard to type 2 diabetes for chair with sliding scale insulin house, she was transitioned to oral medications upon discharge. She'll also found to have low potassium and low sodium she was treated with normal saline and potassium was repleted. Discharge diagnoses 1. Sepsis 2. Left abdominal wall panniculitis 3. Type 2 diabetes 4. Hyponatremia 5. Hypokalemia 6. Polysubstance abuse: Methamphetamines, cocaine and marijuana Disposition: DISCHARGED TO HOME OR SELFCARE Time spent for discharge: 35 minutes Core Measure Documentation - Palliative Care Palliative Care/ Comfort Measures: Not Applicable - Core Measures Any of the following diagnoses?: none Exam - Physical Exam Narrative exam: General: Patient appears well in no distress HEENT: MMM, EOMI cardiac: S1-S2 heard lungs: clear to auscultation, abdomen: soft, nontender, nondistended bowel sounds positive extremities: no edema clubbing or cyanosis Skin: abdominal wall swelling, erythema and tenderness involving the right side of her pannus, no drainage, no open wounds, interval improvement Neuro: no focal deficit Psych: appropriate behavior and mood, cognition intact - Constitutional Vitals: Temp Pulse Resp BP Pulse Ox 97.9 F 79 20 104/62 97 04/07/17 07:00 04/07/17 07:00 04/07/17 07:00 04/07/17 07:00 04/07/17 07:00 Plan Follow up with: PRIMARY CARE, [Primary Care Provider] - 3-5 Days Prescriptions: Clindamycin Phosphate [Cleocin T 1% TOPICAL GEL] 1 applicatio TP BID #1 tube Doxycycline [Vibramycin CAP] 100 mg PO Q12HR #14 capsule metFORMIN [Glucophage] 500 mg PO QDAY #30 tab
[2017-04-07] MEDS: KCL 10MEQ/100ML 10 MEQ/100 ML BAG IV SCH ×2 (12:01→14:34)
[2017-04-07] MEDS ORDERED: MOTRIN PO PRN (13:54)
--- NOTE | 2017-04-07 14:03 | Progress Note ---
Subjective Patient Reports: Positive: feels better, still having pain, pain is less, flatus Narrative: Doing fine , feels better jhonatan is less , still hyperemic lower abd , in dicated to Pt ventral hernia and percense of gall stones , Objective Vital Signs - 12hr 04/07/17 04/07/17 04/07/17 05:02 05:31 07:00 Temperature 97.9 F Pulse Rate [ 79 Apical] Respiratory 18 18 20 Rate Blood Pressure 104/62 [Left Arm] O2 Sat by Pulse 97 Oximetry - Labs 04/07/17 04:41 04/07/17 04:41 Diabetes panel 04/07/17 Range/Units 04:41 Sodium 137 D (137-145) mmol/L Potassium 3.2 L (3.6-5.0) mmol/L Chloride 97.2 L (98-107) mmol/L Carbon Dioxide 26 (22-30) mmol/L BUN 14 (7-17) mg/dL Creatinine 0.6 L (0.7-1.2) mg/dL Glucose 107 H (65-100) mg/dL Calcium 9.0 (8.4-10.2) mg/dL Calcium panel 04/07/17 Range/Units 04:41 Calcium 9.0 (8.4-10.2) mg/dL Pituitary panel 04/07/17 Range/Units 04:41 Sodium 137 D (137-145) mmol/L Potassium 3.2 L (3.6-5.0) mmol/L Chloride 97.2 L (98-107) mmol/L Carbon Dioxide 26 (22-30) mmol/L BUN 14 (7-17) mg/dL Creatinine 0.6 L (0.7-1.2) mg/dL Glucose 107 H (65-100) mg/dL Calcium 9.0 (8.4-10.2) mg/dL Adrenal panel 04/07/17 Range/Units 04:41 Sodium 137 D (137-145) mmol/L Potassium 3.2 L (3.6-5.0) mmol/L Chloride 97.2 L (98-107) mmol/L Carbon Dioxide 26 (22-30) mmol/L BUN 14 (7-17) mg/dL Creatinine 0.6 L (0.7-1.2) mg/dL Glucose 107 H (65-100) mg/dL Calcium 9.0 (8.4-10.2) mg/dL
--- NOTE | 2017-04-07 15:11 | Progress Note ---
Assessment and Plan - Patient Problems (1) Cellulitis, abdominal wall Current Visit: Yes Status: Acute Plan to address problem: 1. Slowly resolving panniculitis, currently on Vancomycin and Clindamycin currently. 2. For transition to oral Doxycycline and topical Clindamycin at discharge. 3. Discharge okay from ID standpoint. I provided my office's contact information and advised the patient to call/ visit if there are any issues clinically or with her medications. 4. UDS positive for amphetamines, cocaine and marijuana. Uncertain if patient injects/ skin pops any drugs of abuse. Subjective Date of service: 04/07/17 Principal diagnosis: Panniculitis Interval history: No new complaints. Local abdominal wall pain and redness continue to improve. Objective - Constitutional Vitals: Vital Signs Temp Pulse Resp BP Pulse Ox 97.9 F 79 20 104/62 97 04/07/17 07:00 04/07/17 07:00 04/07/17 07:00 04/07/17 07:00 04/07/17 07:00 Temperature -Last 24 Hours Temperature 97.9 F Temperature 99.7 F General appearance: Present: no acute distress, obese - Neck Neck: supple - Respiratory Respiratory effort: normal Respiratory: bilateral: CTA - Cardiovascular Rhythm: regular Heart Sounds: Present: S1 & S2 Extremities: No edema - Gastrointestinal General gastrointestinal: Present: other (fading erythema and improving induration and edema of left lower abdominal wall, no increased warmth or vesicles) - Integumentary Integumentary: no rash - Psychiatric Psychiatric: appropriate mood/affect - Labs CBC & Chem 7: 04/07/17 04:41 04/07/17 04:41 Labs: Abnormal lab results 04/06/17 04/06/17 04/06/17 Range/Units 11:00 16:17 21:12 WBC (4.5-11.0) K/mm3 RDW (13.2-15.2) % Lymphocytes % (Manual) (13.4-35.0) % Seg Neutrophils # Man (1.8-7.7) K/mm3 Monocytes # (Manual) (0.0-0.8) K/mm3 Potassium (3.6-5.0) mmol/L Chloride (98-107) mmol/L Creatinine (0.7-1.2) mg/dL Glucose (65-100) mg/dL POC Glucose 184 H 220 H 128 H (70-105) Urine WBC (Auto) (0.0-6.0) /HPF 04/07/17 04/07/17 04/07/17 Range/Units 04:41 04:41 04:45 WBC 19.7 H (4.5-11.0) K/mm3 RDW 13.0 L (13.2-15.2) % Lymphocytes % (Manual) 11.0 L (13.4-35.0) % Seg Neutrophils # Man 13.0 H (1.8-7.7) K/mm3 Monocytes # (Manual) 1.2 H (0.0-0.8) K/mm3 Potassium 3.2 L (3.6-5.0) mmol/L Chloride 97.2 L (98-107) mmol/L Creatinine 0.6 L (0.7-1.2) mg/dL Glucose 107 H (65-100) mg/dL POC Glucose (70-105) Urine WBC (Auto) 11.0 H (0.0-6.0) /HPF 04/07/17 Range/Units 06:19 WBC (4.5-11.0) K/mm3 RDW (13.2-15.2) % Lymphocytes % (Manual) (13.4-35.0) % Seg Neutrophils # Man (1.8-7.7) K/mm3 Monocytes # (Manual) (0.0-0.8) K/mm3 Potassium (3.6-5.0) mmol/L Chloride (98-107) mmol/L Creatinine (0.7-1.2) mg/dL Glucose (65-100) mg/dL POC Glucose 110 H (70-105) Urine WBC (Auto) (0.0-6.0) /HPF Microbiology 04/05/17 17:18 Peripheral/Venous Blood Culture - Preliminary NO GROWTH AFTER 24 HOURS 04/05/17 16:29 Peripheral/Venous Blood Culture - Preliminary NO GROWTH AFTER 24 HOURS Active Medications Acetaminophen (Tylenol) 650 mg PO Q4H PRN PRN Reason: Pain MILD(1-3)/Fever >100.5/ACOSTA Last Admin: 04/06/17 09:45 Dose: 650 mg Bisacodyl (Dulcolax) 10 mg GA QDAY PRN PRN Reason: Constipation unrelieved by MOM Dextrose (D50w (25gm)) 50 ml IV PRN PRN PRN Reason: Hypoglycemia Enoxaparin Sodium (Lovenox) 40 mg SUB-Q QDAY@2200 [facility] Last Admin: 04/06/17 22:33 Dose: 40 mg Hydromorphone HCl (Dilaudid) 1 mg IV Q3H PRN PRN Reason: Pain , Severe (7-10) Last Admin: 04/07/17 12:09 Dose: 1 mg Clindamycin HCl (Cleocin 900 Mg/50 Ml) 900 mg in 50 mls @ 100 mls/hr IV Q8H [facility] PRN Reason: Protocol Last Admin: 04/07/17 14:40 Dose: 100 mls/hr Sodium Chloride (Nacl 0.9% 1000 Ml) 1,000 mls @ 75 mls/hr IV DIRECT [facility] Last Admin: 04/07/17 05:39 Dose: 75 mls/hr Ibuprofen (Motrin) 600 mg PO Q6H PRN PRN Reason: Pain, Mild (1-3) Insulin Aspart (Novolog) 0 units SUB-Q ACHS [facility] PRN Reason: Protocol Last Admin: 04/07/17 12:26 Dose: 3 units Magnesium Hydroxide (Milk Of Magnesia) 30 ml PO Q4H PRN PRN Reason: Constipation Ondansetron HCl (Zofran) 4 mg IV Q8H PRN PRN Reason: N/V unrelieved by Reglan Last Admin: 04/05/17 22:17 Dose: 4 mg
[2017-04-07 16:59] VITALS: BP 112/63
== END 2017-04-07 19:25 | disposition home or self-care (01) | DRG 872 ==
LOC: ED 15:44 → 3A 18:53
PROVIDERS: ADMIT Emergency Medicine; ATTEND Internal Medicine
DX: A41.9 Sepsis, unspecified organism (principal); L03.311 Cellulitis of abdominal wall; E87.1 Hypo-osmolality and hyponatremia; M79.3 Panniculitis, unspecified; F17.210 Nicotine dependence, cigarettes, uncomplicated; I10 Essential (primary) hypertension; E78.5 Hyperlipidemia, unspecified; E11.40 Type 2 diabetes mellitus with diabetic neuropathy, unspecified; E87.6 Hypokalemia; E66.09 Other obesity due to excess calories; F14.10 Cocaine abuse, uncomplicated; F15.10 Other stimulant abuse, uncomplicated; F12.10 Cannabis abuse, uncomplicated; Z68.35 Body mass index [BMI] 35.0-35.9, adult; Z91.040 Latex allergy status; Z82.49 Family history of ischemic heart disease and other diseases of the circulatory system; Z71.3 Dietary counseling and surveillance; Z71.51 Drug abuse counseling and surveillance of drug abuser
CPT/HCPCS: 36415; 71010; 74000; 74177; 80048; 80053; 80307; 81001; 82140; 82805; 82962; 83036; 83735; 85007; 85025; 85610; 87040; 87086; 93005; 93010; 96365; J1170; J1650; J1815; J1956; J2405; J3370; J3475; J3480; J7030; J7040; J7050; Q9967

== ENCOUNTER 2017-10-24 15:32 | Emergency (ER) | payer OTHER ==
[2017-10-24 16:34] LABS: Basophils % (Auto) 0.5 % (0.0-1.8); Eosinophils % (Auto) 1.2 % (0.0-4.3); Hematocrit 45.5 % (30.3-42.9); Hemoglobin 14.9 gm/dl (10.1-14.3); Mean Corpuscular HGB Conc 33 % (30-34); Mean Corpuscular Hemoglobin 30 pg (28-32); Mean Corpuscular Volume 91 fl (79-97); Platelet Count 303 K/mm3 (140-440); Red Blood Count 4.99 M/mm3 (3.65-5.03); Red Cell Distribution Width 12.9 % (13.2-15.2); White Blood Count 15.6 K/mm3 (4.5-11.0)
[2017-10-24 16:51] LABS: Anion Gap 18 mmol/L; BUN/Creatinine Ratio 16; Blood Urea Nitrogen 11 mg/dL (7-17); Calcium 9.5 mg/dL (8.4-10.2); Carbon Dioxide 26 mmol/L (22-30); Chloride 99.9 mmol/L (98-107); Glucose 176 mg/dL (65-100); Potassium 3.9 mmol/L (3.6-5.0); Sodium 140 mmol/L (137-145)
[2017-10-24 17:26] LABS: Alanine Aminotransferase 23 units/L (7-56); Albumin 4.3 g/dL (3.9-5); Albumin/Globulin Ratio 1.4 %; Alkaline Phosphatase 106 units/L (35-129); Total Protein 7.3 g/dL (6.3-8.2)
[2017-10-24 17:29] LABS: Bilirubin,Direct < 0.2 mg/dL (0-0.2); Bilirubin,Indirect 0.5 mg/dL
[2017-10-24] MEDS ORDERED: VANCOMYCIN/NS 1 GM/250 ML 1 GM/250 ML BAG IV ONE (21:32)
--- NOTE | 2017-10-24 21:59 | Emergency Department Report ---
HPI - General Chief Complaint: Wound/Laceration Time Seen by Provider: 10/24/17 21:24 - HPI HPI: This is a 52-year-old female presents to the emergency department with complaint of a possible infected wound to the bottom of her great left toe as well as an ulceration and possible infection to the lateral portion of the ball of the left foot. Patient states that she accidentally cut her toe on a razor blade that was left by her in a box that she accidentally kicked. He took out a small chunk of the skin at that time. The patient says that she is usually a fast healer but it has started to get red and appears infected. The patient is a diabetic and she also has a history of hypertension and neuropathy. She also has a small wound to the lateral portion of the left foot where she says she accidentally stepped on some glass. She thought she removed it all but is not sure at this point. She has not taken anything for her symptoms prior to presentation. Her primary care physician is carlos Walton. ED Past Medical Hx - Past Medical History Hx Hypertension: Yes Hx Congestive Heart Failure: No Hx Diabetes: Yes Hx Asthma: No Hx COPD: No Additional medical history: neuropathy - Social History Smoking Status: Current Every Day Smoker Substance Use Type: None - Medications Home Medications: Home Medications Medication Instructions Recorded Confirmed Last Taken Type Clindamycin Phosphate [Cleocin T 1 applicatio TP BID #1 tube 04/07/17 Unknown Rx 1% TOPICAL GEL] metFORMIN [Glucophage] 500 mg PO QDAY #30 tab 04/07/17 Unknown Rx Doxycycline [Vibramycin CAP] 100 mg PO Q12HR #14 capsule 10/25/17 Unknown Rx traMADol [Ultram 50 MG tab] 50 mg PO Q6HR PRN #8 tablet 10/25/17 Unknown Rx ED Review of Systems ROS: Stated complaint: INFECTION L FOOT Other details as noted in HPI Comment: All other systems reviewed and negative Constitutional: denies: chills, fever Eyes: denies: eye pain, eye discharge, vision change ENT: denies: ear pain, throat pain Respiratory: denies: cough, shortness of breath, wheezing Cardiovascular: denies: chest pain, palpitations Gastrointestinal: denies: abdominal pain, nausea, diarrhea Genitourinary: denies: urgency, dysuria, discharge Musculoskeletal: denies: back pain, joint swelling, arthralgia Skin: lesions, change in color Neurological: denies: headache, weakness, paresthesias Physical Exam - Physical Exam Vital Signs: Vital Signs 10/24/17 10/24/17 10/24/17 15:36 21:24 21:26 Temperature 98.7 F 98.5 F Pulse Rate 110 H 92 H Respiratory 20 20 18 Rate Blood Pressure 151/87 Blood Pressure 157/83 [Right] O2 Sat by Pulse 99 99 Oximetry Physical Exam: GENERAL: The patient is well-developed well-nourished. HENT: Normocephalic. Atraumatic. Patient has moist mucous membranes. EYES: Extraocular motions are intact. Pupils equal reactive to light bilaterally. NECK: Supple. Trachea is midline. CHEST/LUNGS: Clear to auscultation. There is no respiratory distress noted. HEART/CARDIOVASCULAR: Regular. There is no tachycardia. There is no murmur. ABDOMEN: Abdomen is soft, nontender. Patient has normal bowel sounds. There is no abdominal distention. SKIN: Patient has a stage II ulceration with a slight darkening eschar in the middle and some mild erythema to the toe pad of the left great toe. She also has a circular ulceration to the lateral distal portion of the left plantar foot. Neither area has any bleeding, purulent discharge, weeping or drainage at this time. NEURO: The patient is awake, alert, and oriented. The patient is cooperative. The patient has no focal neurologic deficits. The patient has normal speech. MUSCULOSKELETAL: There is no tenderness or deformity. There is no limitation range of motion. ED Course Vital Signs 10/24/17 10/24/17 10/24/17 15:36 21:24 21:26 Temperature 98.7 F 98.5 F Pulse Rate 110 H 92 H Respiratory 20 20 18 Rate Blood Pressure 151/87 Blood Pressure 157/83 [Right] O2 Sat by Pulse 99 99 Oximetry ED Medical Decision Making - Lab Data Result diagrams: 10/24/17 16:07 10/24/17 16:07 - Radiology Data Radiology results: report reviewed PROCEDURE: XR FOOT 3+V LT TECHNIQUE: Left foot, three views HISTORY: left foot infection, stepped on glass COMPARISON: No prior studies are available for comparison. FINDINGS: No acute fracture or dislocation is seen. There is soft tissue gas/skin ulceration at the plantar aspect of the 1st toe. There is dorsal soft tissue swelling. 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 1 millimeter punctate radiopaque opaque foreign body is seen at the medial 1st toe soft tissues. IMPRESSION: No acute osseous abnormality is seen. Other findings as above Transcribed By: [facility] Dictated By: NEIL PARRY M.D. Electronically Authenticated By: NEIL PARRY M.D. Signed Date/Time: 10/24/171823 X-ray of the left toe shows no acute rashes abnormality seen. There is a punctate radiopaque density in the medial soft tissue of the first toe, possibly foreign body versus something on the skin surface. - Medical Decision Making 52-year-old female complains of a wound to the left great toe pad that started when she accidentally cut it on a razor blade about one week ago and has concern that it got infected. She also has a complaint of a similar ulcer to the outside of her foot. Patient is diabetic. Physical exam there does appear to be 2 different ulcerations and the toe pad might have a very small amount of erythema but there is no bleeding, weeping, drainage or purulence. Patient's labs did show a leukocytosis but otherwise there was no significant electrolyte abnormalities, renal insufficiency or glucose abnormalities. Her vital signs are stable throughout her ED course included being afebrile. She was given an IV dose of antibiotics here. X-rays were done that do not show any signs of osteomyelitis or any other acute process. There is a possible small punctate radiopaque area to the medial portion of the left great toe. However I do not see any foreign body on examination and I do not plan to explore the soft tissue looking for a punctate item. She says that she has good follow-up with both primary care and podiatry and she is asking for discharge home. She has been encouraged to follow up with her primary care and compliance professional physicians on Thursday. I will send her home with a one-week course of antibiotics. She will return immediately with any sign of worsening infection or any acute distress. - Differential Diagnosis ulcer, cellulitis, abscess, osteomyelitis Critical Care Time: No Critical care attestation.: If time is entered above; I have spent that time in minutes in the direct care of this critically ill patient, excluding procedure time. ED Disposition Clinical Impression: Diabetic foot infection Diabetic toe ulcer Qualifiers: Diabetes mellitus type: type 1 Laterality: left Non-pressure ulcer stage: unspecified non-pressure ulcer stage Qualified Code(s): E10.621 - Type 1 diabetes mellitus with foot ulcer Disposition: TO HOME OR SELFCARE Is pt being admited?: No Condition: Stable Instructions: Diabetic Foot Care (ED), Diabetic Foot Ulcers (ED) Additional Instructions: Please follow-up with your podiatristand your primary care physician in the next few days without fail regarding your toe infection and ulcer. Take the antibiotics as prescribed. Return to the emergency department immediately with any worsening of your symptoms, development of fever, or any acute distress. You have been prescribed a medication that is sedating and therefore should not be taken prior to driving, working, and responsible for children and in no way should be mixed with alcohol of any quantity. Prescriptions: Doxycycline [Vibramycin CAP] 100 mg PO Q12HR #14 capsule traMADol [Ultram 50 MG tab] 50 mg PO Q6HR PRN #8 tablet PRN Reason: Pain Referrals: PRIMARY CARE, [Primary Care Provider] - [facility] Time of Disposition: 00:38
[2017-10-24] MEDS ORDERED: VANCOMYCIN 1,750 MG in NACL 0.9% 500 ML 500 ML IV ONE (22:00)
--- NOTE | 2017-10-24 22:25 | XRay Report ---
FINAL REPORT PROCEDURE: XR TOE(S) 2+V LT TECHNIQUE: Left toe, three views HISTORY: left great toe infection COMPARISON: No prior studies are available for comparison. FINDINGS: No cortical erosion is seen. No acute fracture is seen. Osteoarthritic changes are noted at the 1st metatarsophalangeal joint. There may be soft tissue air at the plantar aspect of the 1st toe versus skin ulceration. There is a punctate radiopaque density in the medial soft tissues of the 1st toe, possibly foreign body versus on the skin surface. IMPRESSION: no acute osseous abnormality is seen. There is a punctate radiopaque density in the medial soft tissues of the 1st toe, possibly a foreign body versus on the skin surface.
--- NOTE | 2017-10-24 22:27 | XRay Report ---
FINAL REPORT PROCEDURE: XR FOOT 3+V LT TECHNIQUE: Left foot, three views HISTORY: left foot infection, stepped on glass COMPARISON: No prior studies are available for comparison. FINDINGS: No acute fracture or dislocation is seen. There is soft tissue gas/skin ulceration at the plantar aspect of the 1st toe. There is dorsal soft tissue swelling. 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 1 millimeter punctate radiopaque opaque foreign body is seen at the medial 1st toe soft tissues. IMPRESSION: No acute osseous abnormality is seen. Other findings as above
[2017-10-25] MEDS ORDERED: BOOSTRIX IM ONE (00:38)
[2017-10-25 00:55] VITALS: BP 111/53
== END 2017-10-25 00:51 | disposition home or self-care (01) ==
LOC: ED 15:32
DX: E11.621 Type 2 diabetes mellitus with foot ulcer (principal); L97.529 Non-pressure chronic ulcer of other part of left foot with unspecified severity; I10 Essential (primary) hypertension; F17.200 Nicotine dependence, unspecified, uncomplicated; G62.9 Polyneuropathy, unspecified
CPT/HCPCS: 36415; 73630; 73660; 80048; 80074; 82962; 85025; 90471; 90715; 96365; 96366; 99284; J3370; J7040

== ENCOUNTER 2018-02-01 22:43 | Inpatient (IN) | payer OTHER ==
[2018-02-01 23:34] LABS: Basophils # (Auto) 0.2 K/mm3 (0.0-0.1); Basophils % (Auto) 1.1 % (0.0-1.8); Eosinophils # (Auto) 0.1 K/mm3 (0.0-0.4); Eosinophils % (Auto) 0.8 % (0.0-4.3); Hematocrit 39.9 % (30.3-42.9); Hemoglobin 13.2 gm/dl (10.1-14.3); Lymphocytes # (Auto) 1.9 K/mm3 (1.2-5.4); Lymphocytes % (Auto) 13.3 % (13.4-35.0); Mean Corpuscular HGB Conc 33 % (30-34); Mean Corpuscular Hemoglobin 29 pg (28-32); Mean Corpuscular Volume 87 fl (79-97); Monocytes # (Auto) 1.1 K/mm3 (0.0-0.8); Monocytes % (Auto) 7.7 % (0.0-7.3); Platelet Count 411 K/mm3 (140-440); Red Blood Count 4.57 M/mm3 (3.65-5.03); Red Cell Distribution Width 14.2 % (13.2-15.2)
[2018-02-02 00:02] LABS: Alanine Aminotransferase 14 units/L (7-56); Albumin 3.2 g/dL (3.9-5); BUN/Creatinine Ratio 17; Blood Urea Nitrogen 10 mg/dL (7-17); Hemolysis Index 52
[2018-02-02] MEDS ORDERED: SUBLIMAZE IV ONE (00:28)
[2018-02-02] MEDS ORDERED: TORADOL IV ONE (00:28)
[2018-02-02] MEDS ORDERED: CLEOCIN 600 MG/50 mL 600 MG/50 ML BAG IV ONE (00:28)
[2018-02-02] MEDS ORDERED: TYLENOL PO ONE (00:28)
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
[2018-02-02] MEDS ORDERED: NACL 0.9% 1000 ML IV ONE (00:37)
[2018-02-02 00:54] LABS: C-Reactive Protein 24.4 mg/dL (0.00-1.30)
--- NOTE | 2018-02-02 01:44 | Cat Scan Report ---
FINAL REPORT EXAM: CT LOWER EXTREMITY LT WO CON HISTORY: left foot cellulitis, pain, swelling (diabetic) TECHNIQUE: Routine axial imaging was obtained of the left foot without IV contrast with sagittal coronal reconstructions. Intravenous contrast was not administered. FINDINGS: There is extensive subcutaneous edema throughout the entire left foot compatible with extensive cellulitis. There is no evidence of abscess formation. There is no evidence of occult fracture or osteomyelitis. There is polyarticular arthritic changes in the midfoot without erosions. There additional arthritic changes of the 1st and 5th metatarsophalangeal joints. There is spurring along the posterior and plantar margin of the calcaneus. IMPRESSION: Generalized cellulitis around the entire left foot. No evidence of occult fracture or osteomyelitis. Polyarticular arthritic changes in the midfoot as well as involving the 1st and 5th metatarsophalangeal joints. Calcaneal spurs.
[2018-02-02] MEDS ORDERED: LEVAQUIN 500MG/100ML 500 MG/100 ML BAG IV ONE (02:00)
[2018-02-02] MEDS ORDERED: D50W (25GM) Syringe IV PRN (03:37)
[2018-02-02] MEDS ORDERED: ZOFRAN IV PRN (03:37)
[2018-02-02] MEDS ORDERED: TYLENOL PO PRN (03:37)
[2018-02-02] MEDS ORDERED: PERCOCET 5/325 PO PRN (03:37)
[2018-02-02] MEDS ORDERED: SODIUM CHLORIDE FLUSH SYRINGE 10 ML IV PRN (03:37)
--- NOTE | 2018-02-02 06:34 | History and Physical Report ---
History of Present Illness Date of examination: 02/02/18 Date of admission: 02/02/18 02:44 History of present illness: 52-year-old woman with a history of diabetes, complicated by neuropathy comes emergency room because she has a wound on her left foot and over the last 3 days , she noticed increased drainage from the wound, yellow malodorous, erythema and swelling. Also admits to fever, chills Review of systems Constitutional: no weight loss, chills Ears, eyes, nose, mouth and throat: no nasal congestion, no nasal discharge, no sinus pressure, no vision change, no red eye. Neck: No neck pain or rigidity. Cardiovascular: no chest pain palpitations Respiratory: No cough, shortness of breath Gastrointestinal: no abdominal pain, hematochezia Genitourinary : no dysuria, frequency , no hematuria Musculoskeletal: no joint swelling or muscle ache Integumentary: no rash, no pruritis Neurological: no parathesias, no numbness, no focal weakness Endocrine: no cold or heat intolerance, no polyuria or polydipsia Hematologic/Lymphatic: no easy bruising, no easy bleeding, no gland swelling Allergic/Immunologic: no urticaria, no angioedema. PAST MEDICAL HISTORY: Diabetes complicated by neuropathy PAST SURGICAL HISTORY: Aortic valve replacement SOCIAL HISTORY: Smoked 3 cigarettes a day, no alcohol, drugs FAMILY HISTORY: Diabetes, hypertension Medications and Allergies Allergies Allergy/AdvReac Type Severity Reaction Status Date / Time latex Allergy Rash Verified 10/24/17 15:36 Penicillins Allergy Swelling Verified 10/24/17 15:36 Home Medications Medication Instructions Recorded Confirmed Last Taken Type Levofloxacin [Levaquin TAB] 750 mg PO DAILY #34 tablet 02/09/18 02/11/18 Unknown Rx metFORMIN [Glucophage] 500 mg PO QDDIAB #60 tablet 02/09/18 02/11/18 Unknown Rx traMADol [Ultram 50 MG tab] 50 mg PO Q6HR PRN #20 tablet 02/09/18 02/11/18 Unknown Rx Active Meds: Active Medications Acetaminophen (Tylenol) 650 mg PO Q4H PRN PRN Reason: Pain MILD(1-3)/Fever >100.5/ACOSTA Dextrose (D50w (25gm) Syringe) 50 ml IV PRN PRN PRN Reason: Hypoglycemia Enoxaparin Sodium (Lovenox) 40 mg SUB-Q QDAY ELROY Clindamycin HCl (Cleocin 600 Mg/50 Ml) 600 mg in 50 mls @ 100 mls/hr IV Q8HR ELROY; Protocol Insulin Human Lispro (Humalog) 0 unit SUB-Q ACHS ELROY; Protocol Ondansetron HCl (Zofran) 4 mg IV Q8H PRN PRN Reason: Nausea And Vomiting Oxycodone/Acetaminophen (Percocet 5/325) 1 tab PO Q6H PRN PRN Reason: Pain, Moderate (4-6) Sodium Chloride (Sodium Chloride Flush Syringe 10 Ml) 10 ml IV BID ELROY Sodium Chloride (Sodium Chloride Flush Syringe 10 Ml) 10 ml IV PRN PRN PRN Reason: LINE FLUSH Exam - Physical Exam Narrative exam: Gen. appearance: Patient lying in bed, no apparent distress HEENT: Normocephalic, atraumatic, pupils equally round and reactive to light, extraocular movement intact, and no sclericterus,. No JVD or thyromegaly or nodule,neck supple, no carotid bruit ,mucous membranes moist, no exudate or erythema Heart: S1, S2, regular rate and rhythm Lungs: Clear to auscultation bilaterally, breathing comfortable Abdomen: Positive bowel sounds, nontender, nondistended, no organomegaly Extremity: left foot with erythema, swelling , pus pocket on the medial aspect of the great toe area , the wound on the great toe draining yellow purulent material No edema, cyanosis, clubbing Skin: No rash, nodules, warm, dry Neuro: Oriented 3, cranial nerves II-12 intact, speech is fluent, motor and sensory intact - Constitutional Vitals: Temp Pulse Resp BP Pulse Ox 97.8 F 99 H 18 139/64 98 02/02/18 04:44 02/02/18 04:44 02/02/18 04:54 02/02/18 04:44 02/02/18 04:54 Results - Labs CBC & Chem 7: 02/09/18 05:34 02/09/18 05:34 Labs: Abnormal lab results 02/01/18 02/01/18 02/02/18 Range/Units 23:06 23:06 00:28 WBC 14.2 H (4.5-11.0) K/mm3 Lymph % (Auto) 13.3 L (13.4-35.0) % Blaine % (Auto) 7.7 H (0.0-7.3) % Blaine # 1.1 H (0.0-0.8) K/mm3 Baso # 0.2 H (0.0-0.1) K/mm3 Seg Neutrophils % 77.1 H (40.0-70.0) % Seg Neutrophils # 10.9 H (1.8-7.7) K/mm3 Sodium 136 L (137-145) mmol/L Chloride 95.0 L (98-107) mmol/L Creatinine 0.6 L (0.7-1.2) mg/dL Glucose 243 H (65-100) mg/dL POC Glucose (70-105) Lactic Acid (0.7-2.0) mmol/L Alkaline Phosphatase 178 H (35-129) units/L C-Reactive Protein 24.40 H (0.00-1.30) mg/dL Albumin 3.2 L (3.9-5) g/dL 02/02/18 02/02/18 Range/Units 00:41 06:25 WBC (4.5-11.0) K/mm3 Lymph % (Auto) (13.4-35.0) % Blaine % (Auto) (0.0-7.3) % Blaine # (0.0-0.8) K/mm3 Baso # (0.0-0.1) K/mm3 Seg Neutrophils % (40.0-70.0) % Seg Neutrophils # (1.8-7.7) K/mm3 Sodium (137-145) mmol/L Chloride (98-107) mmol/L Creatinine (0.7-1.2) mg/dL Glucose (65-100) mg/dL POC Glucose 132 H (70-105) Lactic Acid 2.20 H* (0.7-2.0) mmol/L Alkaline Phosphatase (35-129) units/L C-Reactive Protein (0.00-1.30) mg/dL Albumin (3.9-5) g/dL Assessment and Plan Assessment Sepsis Diabetic foot infection Diabetes, stated by neuropathy Plan Admit medicine Clindamycin, Percocet for pain, consult surgery Check fingerstick initiate insulin sliding scale DVT prophylaxis
[2018-02-02] MEDS: CLEOCIN 600 MG/50 mL 600 MG/50 ML BAG IV SCH ×2 (06:42→13:17)
[2018-02-02] MEDS: HumaLOG SUB-Q SCH ×4 (08:29→23:14)
[2018-02-02] MEDS: SODIUM CHLORIDE FLUSH SYRINGE 10 ML IV SCH ×2 (10:45→21:09)
[2018-02-02] MEDS: GLUCOPHAGE PO SCH (10:45)
[2018-02-02] MEDS ORDERED: DILAUDID IV PRN (11:23)
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
[2018-02-02] MEDS: NACL 0.9% 1000 ML 1,000 ML IV SCH (11:47)
[2018-02-02] MEDS: LOVENOX SUB-Q SCH (11:49)
[2018-02-02] MEDS ORDERED: DILAUDID IV STA (14:12)
--- NOTE | 2018-02-02 14:37 | Procedure Note ---
Date of procedure: 02/02/18 Pre-op diagnosis: Infected diabetic foot ulcer Post-op diagnosis: same Procedure: Incision and drainage of left diabetic foot ulcer along with debridement. Consent was obtained. Timeout was performed. Foot was prepped. I began by on javier the large nonviable area on the plantar surface of the foot. Cultures were obtained. There were areas of fibrinous exudate underneath. Along with the wound care nurse, we decided to do enzymatic debridement. The total surface area that was debrided was 3 x 5 cm. This was epidermis only. We then turned our attention to the ulcer at the base of the 1st toe. Cotton tipped applicator was inserted into the wound. Along the applicator, the skin was incised to open up the pocket. The pocket depth was about 2 to 3 cm. I debrided some of the callous along the edges of the ulcer. These areas were then cleaned and dressed by the wound care nurse. Patient tolerated procedure well. There were no complications. Findings: Purulent fluid was found underneath the nonviable skin as well as in the abscess cavity adjacent to the diabetic foot ulcer. Anesthesia: none Surgeon: CHARAN TANNER Estimated blood loss: minimal Pathology: list (culture swabs) Specimen disposition: to lab Condition: stable Disposition: floor
--- NOTE | 2018-02-02 16:35 | Progress Note ---
Assessment and Plan Assessment and plan: Patient is a 52 yo woman with a history of AVR, hypertension, tobacco dependency and dm type 2 with peripheral neuropathy, htn, dlp and abd wall cellulitis who presents with left foot pains -Sepsis skin cellulitis with left foot abscess s/p I-n-D (see below): iv abx, follow wound ctx, pain control addressed with iv morphine -Left foot abscess -DM with p. neuropathy: tight control of bg, add ssi, ada diet -Tobacco dependency pastoral counselor on stopping Addendum entered and electronically signed by CHARAN TANNER MD 02/02/18 14:38: The debridement was done with a scalpel. Therefore, the debridement was sharply done. Original Note: Date of procedure: 02/02/18 Pre-op diagnosis: Infected diabetic foot ulcer Post-op diagnosis: same Procedure: Incision and drainage of left diabetic foot ulcer along with debridement. Consent was obtained. Timeout was performed. Foot was prepped. I began by on javier the large nonviable area on the plantar surface of the foot. Cultures were obtained. There were areas of fibrinous exudate underneath. Along with the wound care nurse, we decided to do enzymatic debridement. The total surface area that was debrided was 3 x 5 cm. This was epidermis only. We then turned our attention to the ulcer at the base of the 1st toe. Cotton tipped applicator was inserted into the wound. Along the applicator, the skin was incised to open up the pocket. The pocket depth was about 2 to 3 cm. I debrided some of the callous along the edges of the ulcer. These areas were then cleaned and dressed by the wound care nurse. Patient tolerated procedure well. There were no complications. Findings: Purulent fluid was found underneath the nonviable skin as well as in the abscess cavity adjacent to the diabetic foot ulcer. Anesthesia: none Surgeon: CHARAN TANNER Estimated blood loss: minimal Pathology: list (culture swabs) Specimen disposition: to lab Condition: stable Disposition: floor History Interval history: Patient was seen and examined. Follow-up on current diagnosis of left foot pain. Overnight uneventful. Patient denies any chest pain, shortness breath, nausea/vomiting or severe headaches. Imaging, nursing note, chart, labs and old chart reviewed. Discussed with patient. Hospitalist Physical - Physical exam Narrative exam: GEN: WDWN, NAD, AWAKE, ALERT, ORIENTATED 3 HEENT: NCAT, EOMI, PERRL, OP Clear NECK: supple, no adenopathy, no thyromegaly, no JVD CVS/HEART: RRR, NORMAL S1S2, pulses present bilaterally CHEST/LUNGS: CTA B, Symmetrical chest expansion, good air entry bilaterally GI/Abdomen: soft, NTND, good bowel sounds, no guarding or rebound /Bladder: no suprapubic tenderness, no CVA or paraspinal tenderness EXT/Skin: left foot edema, red, erythematous, tender, abdominal size ulcer on the toe, lateral abscess, MSK: FROM x 4 Neuro: CN 2-12 grossly intact, no new focal deficits, lost of sensation left 3- 5 toes prior to debridement Psych: calm - Constitutional Vitals: Temp Pulse Resp BP Pulse Ox 97.8 F 99 H 20 146/70 98 02/02/18 07:25 02/02/18 04:44 02/02/18 07:25 02/02/18 07:25 02/02/18 04:54 Results - Labs CBC & Chem 7: 02/01/18 23:06 02/01/18 23:06 Labs: Laboratory Last Values WBC 14.2 K/mm3 (4.5-11.0) H 02/01/18 23:06 RBC 4.57 M/mm3 (3.65-5.03) 02/01/18 23:06 Hgb 13.2 gm/dl (10.1-14.3) 02/01/18 23:06 Hct 39.9 % (30.3-42.9) 02/01/18 23:06 MCV 87 fl (79-97) 02/01/18 23:06 MCH 29 pg (28-32) 02/01/18 23:06 MCHC 33 % (30-34) 02/01/18 23:06 RDW 14.2 % (13.2-15.2) 02/01/18 23:06 Plt Count 411 K/mm3 (140-440) 02/01/18 23:06 Lymph % (Auto) 13.3 % (13.4-35.0) L 02/01/18 23:06 Whitley % (Auto) 7.7 % (0.0-7.3) H 02/01/18 23:06 Eos % (Auto) 0.8 % (0.0-4.3) 02/01/18 23:06 Baso % (Auto) 1.1 % (0.0-1.8) 02/01/18 23:06 Lymph # 1.9 K/mm3 (1.2-5.4) 02/01/18 23:06 Whitley # 1.1 K/mm3 (0.0-0.8) H 02/01/18 23:06 Eos # 0.1 K/mm3 (0.0-0.4) 02/01/18 23:06 Baso # 0.2 K/mm3 (0.0-0.1) H 02/01/18 23:06 Seg Neutrophils % 77.1 % (40.0-70.0) H 02/01/18 23:06 Seg Neutrophils # 10.9 K/mm3 (1.8-7.7) H 02/01/18 23:06 ESR 29 mm/Hr (0-20) 02/02/18 00:28 VBG pH 7.369 (7.320-7.420) 02/01/18 23:06 Sodium 136 mmol/L (137-145) L 02/01/18 23:06 Potassium 4.2 mmol/L (3.6-5.0) 02/01/18 23:06 Chloride 95.0 mmol/L (98-107) L 02/01/18 23:06 Carbon Dioxide 25 mmol/L (22-30) 02/01/18 23:06 Anion Gap 20 mmol/L 02/01/18 23:06 BUN 10 mg/dL (7-17) 02/01/18 23:06 Creatinine 0.6 mg/dL (0.7-1.2) L 02/01/18 23:06 Estimated GFR > 60 ml/min 02/01/18 23:06 BUN/Creatinine Ratio 17 % 02/01/18 23:06 Glucose 243 mg/dL (65-100) H 02/01/18 23:06 POC Glucose 259 (70-105) H 02/02/18 11:42 Lactic Acid 0.90 mmol/L (0.7-2.0) 02/02/18 06:51 Calcium 9.0 mg/dL (8.4-10.2) 02/01/18 23:06 Total Bilirubin 0.30 mg/dL (0.1-1.2) 02/01/18 23:06 AST 16 units/L (5-40) 02/01/18 23:06 ALT 14 units/L (7-56) 02/01/18 23:06 Alkaline Phosphatase 178 units/L (35-129) H 02/01/18 23:06 Total Creatine Kinase 40 units/L (30-135) 02/02/18 00:28 C-Reactive Protein 24.40 mg/dL (0.00-1.30) H 02/02/18 00:28 Total Protein 7.9 g/dL (6.3-8.2) 02/01/18 23:06 Albumin 3.2 g/dL (3.9-5) L 02/01/18 23:06 Albumin/Globulin Ratio 0.7 % 02/01/18 23:06
[2018-02-02] MEDS: ROXICODONE PO PRN ×2 (16:54→23:11)
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
[2018-02-02] MEDS ORDERED: VANCOMYCIN PHARMACY TO DOSE IV SCH (17:00)
[2018-02-02] MEDS ORDERED: UNASYN/NS 3 GM/100 ML 3 GM/100 ML BAG IV SCH (18:00)
[2018-02-02] MEDS ORDERED: VANCOMYCIN 2,000 MG in NACL 0.9% 500 ML 500 ML IV ONE (18:30)
[2018-02-02] MEDS: FLAGYL 500 MG/100 ML 500 MG/100 ML BAG IV SCH ×2 (19:02→21:59)
[2018-02-02] MEDS: LEVAQUIN 750MG/150ML 750 MG/150 ML BAG IV SCH (23:12)
[2018-02-03] MEDS: VANCOMYCIN 1,500 MG in NACL 0.9% 500 ML 500 ML IV SCH ×2 (05:51→17:55)
[2018-02-03 06:22] LABS: Basophils # (Auto) 0.1 K/mm3 (0.0-0.1); Basophils % (Auto) 0.5 % (0.0-1.8); Eosinophils # (Auto) 0.1 K/mm3 (0.0-0.4); Eosinophils % (Auto) 0.8 % (0.0-4.3); Hematocrit 34.9 % (30.3-42.9); Hemoglobin 11.8 gm/dl (10.1-14.3); Lymphocytes # (Auto) 1.1 K/mm3 (1.2-5.4); Mean Corpuscular HGB Conc 34 % (30-34); Mean Corpuscular Hemoglobin 29 pg (28-32); Mean Corpuscular Volume 85 fl (79-97); Monocytes % (Auto) 8.4 % (0.0-7.3); Platelet Count 320 K/mm3 (140-440); Red Cell Distribution Width 13.9 % (13.2-15.2)
[2018-02-03 06:40] LABS: BUN/Creatinine Ratio 14; Blood Urea Nitrogen 7 mg/dL (7-17); Calcium 8.5 mg/dL (8.4-10.2); Hemolysis Index 5
[2018-02-03] MEDS: HumaLOG SUB-Q SCH ×4 (07:46→23:35)
[2018-02-03] MEDS ORDERED: K-DUR PO ONE ×2 (09:00→12:00)
[2018-02-03] MEDS: ROXICODONE PO PRN ×3 (09:11→23:31)
[2018-02-03 09:36] LABS: Bacteria,Urine 3+ /HPF (Negative); Bilirubin,Urine NEG (Negative); Blood,Urine SM (Negative); Mucus,Urine FEW /HPF; Protein,Urine <15 mg/dL mg/dL (Negative); Urobilinogen,Urine < 2.0 mg/dL (<2.0)
[2018-02-03 09:38] LABS: Benzodiazepines Screen,Urine PRESUMPTIVE NEGATIVE; Cocaine Screen,Urine PRESUMPTIVE NEGATIVE; Methadone Screen,Urine PRESUMPTIVE NEGATIVE; Opiate Screen,Urine PRESUMPTIVE NEGATIVE
[2018-02-03 09:42] LABS: Color,Urine Colorless (Yellow)
[2018-02-03 09:51] LABS: Amphetamine Screen,Urine PRESUMPTIVE POSITIVE; Cannabinoid Screen,Urine PRESUMPTIVE POSITIVE
[2018-02-03] MEDS: SODIUM CHLORIDE FLUSH SYRINGE 10 ML IV SCH ×2 (11:45→23:36)
[2018-02-03] MEDS: LOVENOX SUB-Q SCH (12:50)
[2018-02-03] MEDS: GLUCOPHAGE PO SCH (12:50)
[2018-02-03] MEDS: FLAGYL 500 MG/100 ML 500 MG/100 ML BAG IV SCH ×3 (14:01→23:32)
--- NOTE | 2018-02-03 14:10 | Progress Note ---
Assessment and Plan Assessment and plan: Patient is a 52 yo woman with a history of AVR, hypertension, tobacco dependency and dm type 2 with peripheral neuropathy, htn, dlp and abd wall cellulitis who presents with left foot pains -Sepsis skin cellulitis with left foot abscess s/p I-n-D (see below): iv abx, follow wound ctx, pain control addressed with iv morphine -Left foot abscess s/p i-n-D -DM with p. neuropathy: tight control of bg, add ssi, ada diet -Tobacco dependency psychosocial rehabilitation counselor on stopping Addendum entered and electronically signed by CHARAN TANNER MD 02/02/18 14:38: The debridement was done with a scalpel. Therefore, the debridement was sharply done. Original Note: Date of procedure: 02/02/18 Pre-op diagnosis: Infected diabetic foot ulcer Post-op diagnosis: same Procedure: Incision and drainage of left diabetic foot ulcer along with debridement. Consent was obtained. Timeout was performed. Foot was prepped. I began by on javier the large nonviable area on the plantar surface of the foot. Cultures were obtained. There were areas of fibrinous exudate underneath. Along with the wound care nurse, we decided to do enzymatic debridement. The total surface area that was debrided was 3 x 5 cm. This was epidermis only. We then turned our attention to the ulcer at the base of the 1st toe. Cotton tipped applicator was inserted into the wound. Along the applicator, the skin was incised to open up the pocket. The pocket depth was about 2 to 3 cm. I debrided some of the callous along the edges of the ulcer. These areas were then cleaned and dressed by the wound care nurse. Patient tolerated procedure well. There were no complications. Findings: Purulent fluid was found underneath the nonviable skin as well as in the abscess cavity adjacent to the diabetic foot ulcer. Anesthesia: none Surgeon: CHARAN TANNER Estimated blood loss: minimal Pathology: list (culture swabs) Specimen disposition: to lab Condition: stable Disposition: floor MRI left foot pending History Interval history: Patient was seen and examined. Follow-up on current diagnosis of left foot pain. Overnight uneventful. Patient denies any chest pain, shortness breath, nausea/vomiting or severe headaches. Imaging, nursing note, chart, labs and old chart reviewed. Discussed with patient. Hospitalist Physical - Physical exam Narrative exam: GEN: WDWN, NAD, AWAKE, ALERT, ORIENTATED 3 HEENT: NCAT, EOMI, PERRL, OP Clear NECK: supple, no adenopathy, no thyromegaly, no JVD CVS/HEART: RRR, NORMAL S1S2, pulses present bilaterally CHEST/LUNGS: CTA B, Symmetrical chest expansion, good air entry bilaterally GI/Abdomen: soft, NTND, good bowel sounds, no guarding or rebound /Bladder: no suprapubic tenderness, no CVA or paraspinal tenderness EXT/Skin: left foot edema, red, erythematous, tender, abdominal size ulcer on the toe, lateral abscess, MSK: FROM x 4 Neuro: CN 2-12 grossly intact, no new focal deficits, lost of sensation left 3- 5 toes prior to debridement Psych: calm - Constitutional Vitals: Temp Pulse Resp BP Pulse Ox 98.5 F 98 H 20 135/58 98 02/03/18 12:05 02/03/18 12:05 02/03/18 12:05 02/03/18 12:05 02/03/18 12:05 Results - Labs CBC & Chem 7: 02/03/18 06:00 02/03/18 06:00 Labs: Laboratory Last Values WBC 11.9 K/mm3 (4.5-11.0) H 02/03/18 06:00 RBC 4.10 M/mm3 (3.65-5.03) 02/03/18 06:00 Hgb 11.8 gm/dl (10.1-14.3) 02/03/18 06:00 Hct 34.9 % (30.3-42.9) 02/03/18 06:00 MCV 85 fl (79-97) 02/03/18 06:00 MCH 29 pg (28-32) 02/03/18 06:00 MCHC 34 % (30-34) 02/03/18 06:00 RDW 13.9 % (13.2-15.2) 02/03/18 06:00 Plt Count 320 K/mm3 (140-440) 02/03/18 06:00 Lymph % (Auto) 9.0 % (13.4-35.0) L 02/03/18 06:00 [place] % (Auto) 8.4 % (0.0-7.3) H 02/03/18 06:00 Eos % (Auto) 0.8 % (0.0-4.3) 02/03/18 06:00 Baso % (Auto) 0.5 % (0.0-1.8) 02/03/18 06:00 Lymph # 1.1 K/mm3 (1.2-5.4) L 02/03/18 06:00 [place] # 1.0 K/mm3 (0.0-0.8) H 02/03/18 06:00 Eos # 0.1 K/mm3 (0.0-0.4) 02/03/18 06:00 Baso # 0.1 K/mm3 (0.0-0.1) 02/03/18 06:00 Seg Neutrophils % 81.3 % (40.0-70.0) H 02/03/18 06:00 Seg Neutrophils # 9.7 K/mm3 (1.8-7.7) H 02/03/18 06:00 ESR 29 mm/Hr (0-20) 02/02/18 00:28 VBG pH 7.369 (7.320-7.420) 02/01/18 23:06 Sodium 134 mmol/L (137-145) L 02/03/18 06:00 Potassium 3.5 mmol/L (3.6-5.0) L 02/03/18 06:00 Chloride 94.8 mmol/L (98-107) L 02/03/18 06:00 Carbon Dioxide 27 mmol/L (22-30) 02/03/18 06:00 Anion Gap 16 mmol/L 02/03/18 06:00 BUN 7 mg/dL (7-17) 02/03/18 06:00 Creatinine 0.5 mg/dL (0.7-1.2) L 02/03/18 06:00 Estimated GFR > 60 ml/min 02/03/18 06:00 BUN/Creatinine Ratio 14 % 02/03/18 06:00 Glucose 138 mg/dL (65-100) H 02/03/18 06:00 POC Glucose 140 (70-105) H 02/03/18 11:36 Lactic Acid 0.90 mmol/L (0.7-2.0) 02/02/18 06:51 Calcium 8.5 mg/dL (8.4-10.2) 02/03/18 06:00 Total Bilirubin 0.30 mg/dL (0.1-1.2) 02/01/18 23:06 AST 16 units/L (5-40) 02/01/18 23:06 ALT 14 units/L (7-56) 02/01/18 23:06 Alkaline Phosphatase 178 units/L (35-129) H 02/01/18 23:06 Total Creatine Kinase 40 units/L (30-135) 02/02/18 00:28 C-Reactive Protein 25.50 mg/dL (0.00-1.30) H 02/02/18 17:51 Total Protein 7.9 g/dL (6.3-8.2) 02/01/18 23:06 Albumin 3.2 g/dL (3.9-5) L 02/01/18 23:06 Albumin/Globulin Ratio 0.7 % 02/01/18 23:06 Urine Color Colorless (Yellow) 02/03/18 09:00 Urine Turbidity Clear (Clear) 02/03/18 09:00 Urine pH 7.0 (5.0-7.0) 02/03/18 09:00 Ur Specific [place] 1.002 (1.003-1.030) L 02/03/18 09:00 Urine Protein <15 mg/dl mg/dL (Negative) 02/03/18 09:00 Urine Glucose (UA) Neg mg/dL (Negative) 02/03/18 09:00 Urine Ketones Tr mg/dL (Negative) 02/03/18 09:00 Urine Blood Sm (Negative) 02/03/18 09:00 Urine Nitrite Neg (Negative) 02/03/18 09:00 Urine Bilirubin Neg (Negative) 02/03/18 09:00 Urine Urobilinogen < 2.0 mg/dL (<2.0) 02/03/18 09:00 Ur Leukocyte Esterase Neg (Negative) 02/03/18 09:00 Urine WBC (Auto) 1.0 /HPF (0.0-6.0) 02/03/18 09:00 Urine RBC (Auto) 1.0 /HPF (0.0-6.0) 02/03/18 09:00 U Epithel Cells (Auto) 5.0 /HPF (0-13.0) 02/03/18 09:00 Urine Bacteria (Auto) 3+ /HPF (Negative) 02/03/18 09:00 Urine Mucus Few /HPF 02/03/18 09:00 Urine Opiates Screen Presumptive negative 02/03/18 09:00 Urine Methadone Screen Presumptive negative 02/03/18 09:00 Ur Barbiturates Screen Presumptive negative 02/03/18 09:00 Ur Phencyclidine Scrn Presumptive negative 02/03/18 09:00 Ur Amphetamines Screen Presumptive positive 02/03/18 09:00 U Benzodiazepines Scrn Presumptive negative 02/03/18 09:00 Urine Cocaine Screen Presumptive negative 02/03/18 09:00 U Marijuana (THC) Screen Presumptive positive 02/03/18 09:00 Drugs of Abuse Note Disclamer 02/03/18 09:00
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
--- NOTE | 2018-02-03 15:37 | Progress Note ---
Assessment and Plan - Patient Problems (1) Diabetic infection of left foot Current Visit: Yes Status: Acute Plan to address problem: Clinically, the patient appears to be doing better. By history she is improved. Await results of MRI and arterial Doppler studies. Will follow along and debride further as needed. Please call if there any questions. Subjective Date of service: 02/03/18 Patient Reports: Positive: feels better (able to move at the ankle better. Less swelling. No pain) Objective Vital Signs - 12hr 02/03/18 02/03/18 07:51 12:05 Temperature 98.4 F 98.5 F Pulse Rate 99 H 98 H Respiratory 20 20 Rate Blood Pressure 134/84 135/58 O2 Sat by Pulse 96 98 Oximetry - General physical appearance well developed, well nourished, no distress, no pain - Integumentary other (dressings have minimal moderate drainage. The erythema at the ankle and distal lower leg are decreased.) - Labs 02/03/18 06:00 02/03/18 06:00 Diabetes panel 02/03/18 Range/Units 06:00 Sodium 134 L (137-145) mmol/L Potassium 3.5 L (3.6-5.0) mmol/L Chloride 94.8 L (98-107) mmol/L Carbon Dioxide 27 (22-30) mmol/L BUN 7 (7-17) mg/dL Creatinine 0.5 L (0.7-1.2) mg/dL Glucose 138 H (65-100) mg/dL Calcium 8.5 (8.4-10.2) mg/dL Calcium panel 02/03/18 Range/Units 06:00 Calcium 8.5 (8.4-10.2) mg/dL Pituitary panel 02/03/18 Range/Units 06:00 Sodium 134 L (137-145) mmol/L Potassium 3.5 L (3.6-5.0) mmol/L Chloride 94.8 L (98-107) mmol/L Carbon Dioxide 27 (22-30) mmol/L BUN 7 (7-17) mg/dL Creatinine 0.5 L (0.7-1.2) mg/dL Glucose 138 H (65-100) mg/dL Calcium 8.5 (8.4-10.2) mg/dL Adrenal panel 02/03/18 Range/Units 06:00 Sodium 134 L (137-145) mmol/L Potassium 3.5 L (3.6-5.0) mmol/L Chloride 94.8 L (98-107) mmol/L Carbon Dioxide 27 (22-30) mmol/L BUN 7 (7-17) mg/dL Creatinine 0.5 L (0.7-1.2) mg/dL Glucose 138 H (65-100) mg/dL Calcium 8.5 (8.4-10.2) mg/dL
[2018-02-03] MEDS: LEVAQUIN 750MG/150ML 750 MG/150 ML BAG IV SCH (15:47)
[2018-02-04] MEDS: FLAGYL 500 MG/100 ML 500 MG/100 ML BAG IV SCH ×3 (07:07→22:20)
[2018-02-04] MEDS: ROXICODONE PO PRN ×2 (07:08→22:20)
[2018-02-04] MEDS: VANCOMYCIN 1,500 MG in NACL 0.9% 500 ML 500 ML IV SCH ×2 (08:21→17:54)
[2018-02-04] MEDS: HumaLOG SUB-Q SCH ×4 (08:32→22:23)
--- NOTE | 2018-02-04 08:40 | Magnetic Resonance Report ---
MR LOWER EXTREMITY NON-JOINT LEFT WITH AND WITHOUT CONTRAST HISTORY: Left foot ulcer, swelling, cellulitis, evaluate for abscess or osteomyelitis. TECHNIQUE: Multisequence, multiplanar MRI was performed before and after 15 cc of Multihance intravenously. COMPARISON: Left foot films dated 01/04/17. CT left lower extremity dated 02/02/18. FINDINGS: There is a soft tissue bandage along the medial surface of the left foot near the base of the great toe and medial to the first metatarsophalangeal joint. There appears to be focal ulceration in these areas. There is diffuse subcutaneous muscular and edema with enhancement consistent with myositis and cellulitis. There appears to be early abscess formation just inferior to the first metatarsophalangeal joint which measures approximately 2.9 x 2.9 x 1.8 cm. This is best demonstrated on the sagittal T1 fat-sat postcontrast images. There is abnormal decreased T1 signal, bone marrow edema and post contrast-enhancement in the fifth metatarsal head consistent with osteomyelitis. No convincing abnormal bone marrow signal is identified in the medial foot in the area of the presumed early abscess. The remaining bone marrow signal is within normal limits. Mild diffuse arthritic changes are noted. There is a large joint effusion at the left ankle. There is smooth synovial enhancement following IV contrast. IMPRESSION: Osteomyelitis of the fifth metatarsal head. Probable early abscess medial and inferior to the first metatarsophalangeal joint. Cellulitis. Myositis. Large joint effusion at the left ankle. The etiology of this is unclear. There are no adjacent abnormal bone findings. Septic joint?
[2018-02-04] MEDS: GLUCOPHAGE PO SCH (10:36)
[2018-02-04] MEDS: LEVAQUIN 750MG/150ML 750 MG/150 ML BAG IV SCH (10:36)
[2018-02-04] MEDS: LOVENOX SUB-Q SCH (10:37)
[2018-02-04] MEDS: SODIUM CHLORIDE FLUSH SYRINGE 10 ML IV SCH ×2 (10:40→22:20)
--- NOTE | 2018-02-04 10:56 | Event Note ---
Date: 02/04/18 I reviewed the MRI with Dr. Golden from radiology. I confirmed that the area of "abscess" is the same area that we had already opened and packed. The packing material in that wound was giving the appearance of an abscess. There is no separate area that he saw that was suggestive of an abscess. As for the "septic joint", he mentioned that he did not see any other findings that would be consistent with the diagnosis such as bone marrow changes. Clinically, the patient reports that her ankle is feeling much better. Therefore, I do not think we have to be worried about septic joint. Having said that, I will defer to the primary team if they would like to have orthopedics consult on this case to evaluate these findings from the MRI.
--- NOTE | 2018-02-04 15:37 | Progress Note ---
Assessment and Plan Assessment and plan: Patient is a 52 yo woman with a history of AVR, hypertension, tobacco dependency and dm type 2 with peripheral neuropathy, htn, dlp and abd wall cellulitis who presents with left foot pains -Sepsis skin cellulitis with left foot abscess s/p I-n-D (see below): iv abx, follow wound ctx, pain control addressed with iv morphine -Left foot abscess s/p i-n-D -DM with p. neuropathy: tight control of bg, add ssi, ada diet -Tobacco dependency elementary school counselor on stopping Addendum entered and electronically signed by CHARAN TANNER MD 02/02/18 14:38: The debridement was done with a scalpel. Therefore, the debridement was sharply done. Original Note: Date of procedure: 02/02/18 Pre-op diagnosis: Infected diabetic foot ulcer Post-op diagnosis: same Procedure: Incision and drainage of left diabetic foot ulcer along with debridement. Consent was obtained. Timeout was performed. Foot was prepped. I began by on javier the large nonviable area on the plantar surface of the foot. Cultures were obtained. There were areas of fibrinous exudate underneath. Along with the wound care nurse, we decided to do enzymatic debridement. The total surface area that was debrided was 3 x 5 cm. This was epidermis only. We then turned our attention to the ulcer at the base of the 1st toe. Cotton tipped applicator was inserted into the wound. Along the applicator, the skin was incised to open up the pocket. The pocket depth was about 2 to 3 cm. I debrided some of the callous along the edges of the ulcer. These areas were then cleaned and dressed by the wound care nurse. Patient tolerated procedure well. There were no complications. Findings: Purulent fluid was found underneath the nonviable skin as well as in the abscess cavity adjacent to the diabetic foot ulcer. Anesthesia: none Surgeon: CHARAN TANNER Estimated blood loss: minimal Pathology: list (culture swabs) Specimen disposition: to lab Condition: stable Disposition: floor MRI left foot reviewed and d/w Dr. Tanner, will consult Ortho to evaluate. Wound culture pending. History Interval history: Patient was seen and examined. Follow-up on current diagnosis of left foot pain. Overnight uneventful. Patient denies any chest pain, shortness breath, nausea/vomiting or severe headaches. Imaging, nursing note, chart, labs and old chart reviewed. Discussed with patient. Hospitalist Physical - Physical exam Narrative exam: GEN: WDWN, NAD, AWAKE, ALERT, ORIENTATED 3 HEENT: NCAT, EOMI, PERRL, OP Clear NECK: supple, no adenopathy, no thyromegaly, no JVD CVS/HEART: RRR, NORMAL S1S2, pulses present bilaterally CHEST/LUNGS: CTA B, Symmetrical chest expansion, good air entry bilaterally GI/Abdomen: soft, NTND, good bowel sounds, no guarding or rebound /Bladder: no suprapubic tenderness, no CVA or paraspinal tenderness EXT/Skin: left foot edema, red, erythematous, tender, abdominal size ulcer on the toe, lateral abscess, MSK: FROM x 4 Neuro: CN 2-12 grossly intact, no new focal deficits, lost of sensation left 3- 5 toes prior to debridement Psych: calm - Constitutional Vitals: Temp Pulse Resp BP Pulse Ox 98.2 F 96 H 20 140/73 93 02/04/18 07:58 02/04/18 07:58 02/04/18 07:58 02/04/18 07:58 02/04/18 07:58 Results - Labs CBC & Chem 7: 02/03/18 06:00 02/03/18 06:00 Labs: Laboratory Last Values WBC 11.9 K/mm3 (4.5-11.0) H 02/03/18 06:00 RBC 4.10 M/mm3 (3.65-5.03) 02/03/18 06:00 Hgb 11.8 gm/dl (10.1-14.3) 02/03/18 06:00 Hct 34.9 % (30.3-42.9) 02/03/18 06:00 MCV 85 fl (79-97) 02/03/18 06:00 MCH 29 pg (28-32) 02/03/18 06:00 MCHC 34 % (30-34) 02/03/18 06:00 RDW 13.9 % (13.2-15.2) 02/03/18 06:00 Plt Count 320 K/mm3 (140-440) 02/03/18 06:00 Lymph % (Auto) 9.0 % (13.4-35.0) L 02/03/18 06:00 [place] % (Auto) 8.4 % (0.0-7.3) H 02/03/18 06:00 Eos % (Auto) 0.8 % (0.0-4.3) 02/03/18 06:00 Baso % (Auto) 0.5 % (0.0-1.8) 02/03/18 06:00 Lymph # 1.1 K/mm3 (1.2-5.4) L 02/03/18 06:00 [place] # 1.0 K/mm3 (0.0-0.8) H 02/03/18 06:00 Eos # 0.1 K/mm3 (0.0-0.4) 02/03/18 06:00 Baso # 0.1 K/mm3 (0.0-0.1) 02/03/18 06:00 Seg Neutrophils % 81.3 % (40.0-70.0) H 02/03/18 06:00 Seg Neutrophils # 9.7 K/mm3 (1.8-7.7) H 02/03/18 06:00 ESR 29 mm/Hr (0-20) 02/02/18 00:28 VBG pH 7.369 (7.320-7.420) 02/01/18 23:06 Sodium 134 mmol/L (137-145) L 02/03/18 06:00 Potassium 3.5 mmol/L (3.6-5.0) L 02/03/18 06:00 Chloride 94.8 mmol/L (98-107) L 02/03/18 06:00 Carbon Dioxide 27 mmol/L (22-30) 02/03/18 06:00 Anion Gap 16 mmol/L 02/03/18 06:00 BUN 7 mg/dL (7-17) 02/03/18 06:00 Creatinine 0.5 mg/dL (0.7-1.2) L 02/03/18 06:00 Estimated GFR > 60 ml/min 02/03/18 06:00 BUN/Creatinine Ratio 14 % 02/03/18 06:00 Glucose 138 mg/dL (65-100) H 02/03/18 06:00 POC Glucose 119 (70-105) H 02/04/18 05:34 Lactic Acid 0.90 mmol/L (0.7-2.0) 02/02/18 06:51 Calcium 8.5 mg/dL (8.4-10.2) 02/03/18 06:00 Total Bilirubin 0.30 mg/dL (0.1-1.2) 02/01/18 23:06 AST 16 units/L (5-40) 02/01/18 23:06 ALT 14 units/L (7-56) 02/01/18 23:06 Alkaline Phosphatase 178 units/L (35-129) H 02/01/18 23:06 Total Creatine Kinase 40 units/L (30-135) 02/02/18 00:28 C-Reactive Protein 25.50 mg/dL (0.00-1.30) H 02/02/18 17:51 Total Protein 7.9 g/dL (6.3-8.2) 02/01/18 23:06 Albumin 3.2 g/dL (3.9-5) L 02/01/18 23:06 Albumin/Globulin Ratio 0.7 % 02/01/18 23:06 Urine Color Colorless (Yellow) 02/03/18 09:00 Urine Turbidity Clear (Clear) 02/03/18 09:00 Urine pH 7.0 (5.0-7.0) 02/03/18 09:00 Ur Specific [place] 1.002 (1.003-1.030) L 02/03/18 09:00 Urine Protein <15 mg/dl mg/dL (Negative) 02/03/18 09:00 Urine Glucose (UA) Neg mg/dL (Negative) 02/03/18 09:00 Urine Ketones Tr mg/dL (Negative) 02/03/18 09:00 Urine Blood Sm (Negative) 02/03/18 09:00 Urine Nitrite Neg (Negative) 02/03/18 09:00 Urine Bilirubin Neg (Negative) 02/03/18 09:00 Urine Urobilinogen < 2.0 mg/dL (<2.0) 02/03/18 09:00 Ur Leukocyte Esterase Neg (Negative) 02/03/18 09:00 Urine WBC (Auto) 1.0 /HPF (0.0-6.0) 02/03/18 09:00 Urine RBC (Auto) 1.0 /HPF (0.0-6.0) 02/03/18 09:00 U Epithel Cells (Auto) 5.0 /HPF (0-13.0) 02/03/18 09:00 Urine Bacteria (Auto) 3+ /HPF (Negative) 02/03/18 09:00 Urine Mucus Few /HPF 02/03/18 09:00 Urine Opiates Screen Presumptive negative 02/03/18 09:00 Urine Methadone Screen Presumptive negative 02/03/18 09:00 Ur Barbiturates Screen Presumptive negative 02/03/18 09:00 Ur Phencyclidine Scrn Presumptive negative 02/03/18 09:00 Ur Amphetamines Screen Presumptive positive 02/03/18 09:00 U Benzodiazepines Scrn Presumptive negative 02/03/18 09:00 Urine Cocaine Screen Presumptive negative 02/03/18 09:00 U Marijuana (THC) Screen Presumptive positive 02/03/18 09:00 Drugs of Abuse Note Disclamer 02/03/18 09:00
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
[2018-02-05] MEDS: VANCOMYCIN 1,500 MG in NACL 0.9% 500 ML 500 ML IV SCH ×2 (06:16→19:59)
[2018-02-05] MEDS: FLAGYL 500 MG/100 ML 500 MG/100 ML BAG IV SCH ×2 (06:16→16:47)
[2018-02-05] MEDS: ROXICODONE PO PRN (06:16)
[2018-02-05] MEDS: HumaLOG SUB-Q SCH ×4 (09:41→22:42)
[2018-02-05] MEDS: LEVAQUIN 750MG/150ML 750 MG/150 ML BAG IV SCH (10:22)
[2018-02-05] MEDS: GLUCOPHAGE PO SCH (10:23)
[2018-02-05] MEDS: SODIUM CHLORIDE FLUSH SYRINGE 10 ML IV SCH ×2 (10:24→21:31)
[2018-02-05] MEDS: NACL 0.9% 1000 ML 1,000 ML IV SCH (10:25)
[2018-02-05] MEDS: DILAUDID IV PRN ×3 (10:46→18:20)
--- NOTE | 2018-02-05 10:46 | Progress Note ---
Assessment and Plan - Patient Problems (1) Diabetic infection of left foot Current Visit: Yes Status: Acute Plan to address problem: Clinically, the patient is stable. I examined the wound with the wound care nurse. We both were in agreement that further I and D is needed. I think the extent to which we would have to do this precludes bedside drainage. I think she'll do better in the operating room. This was explained to the patient and she is an agreement. Procedure, risks, benefits, alternatives were discussed. Patient consent to procedure. All questions were answered. Will proceed to the OR today. Patient has been made NPO. Please call if there any questions. Subjective Date of service: 02/05/18 Patient Reports: Positive: no new complaints (has more mobility at the ankle. Feels that she is better than when she came in.) Objective Vital Signs - 12hr 02/04/18 02/05/18 23:50 07:39 Temperature 99.0 F 98.7 F Pulse Rate 103 H 90 Respiratory 18 18 Rate Blood Pressure 156/82 129/66 O2 Sat by Pulse 96 95 Oximetry - General physical appearance well developed, well nourished, no distress, no pain - Respiratory normal expansion, normal respiratory effort - Integumentary other (there is still purulent drainage from both wounds on the left foot. Probing of the ulcer site showed the cavities about 3 cm in depth. The other wound does not seem to track anywhere, however it does appear there is some purulent fluid coming out when the surrounding areas are pressed.) - Psychiatric oriented to time, oriented to person, oriented to place, speech is normal, memory intact - Labs 02/03/18 06:00 02/03/18 06:00
[2018-02-05] MEDS: LOVENOX SUB-Q SCH (11:25)
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
--- NOTE | 2018-02-05 14:21 | Consultation ---
History of Present Illness - HPI Consult date: 02/05/18 Consult reason: joint pain History of present illness: 52-year-old woman with a history of diabetes, indicated by neuropathy comes emergency room because she has a wound on her left foot and over the last 3 days prior to admission, she noticed increased drainage from the wound, yellow malodorous, erythema and swelling. Upon admission seen by general surgery where debridement left foot done, currently patient states foot feel much better able to move joints and weight bear w/o difficulty, asked to evaluate whether ongoing sepsis left ankle... Past History Past Medical History: diabetes (with neuropathy), other (obesity) Past Surgical History: Other (aortic stent placement) Social history: smoking. denies: alcohol abuse Family history: diabetes, hypertension Medications and Allergies Allergies Allergy/AdvReac Type Severity Reaction Status Date / Time latex Allergy Rash Verified 10/24/17 15:36 Penicillins Allergy Swelling Verified 10/24/17 15:36 Home Medications Medication Instructions Recorded Confirmed Last Taken Type Clindamycin Phosphate [Cleocin T 1 applicatio TP BID #1 tube 04/07/17 Unknown Rx 1% TOPICAL GEL] metFORMIN [Glucophage] 500 mg PO QDAY #30 tab 04/07/17 Unknown Rx Doxycycline [Vibramycin CAP] 100 mg PO Q12HR #14 capsule 10/25/17 Unknown Rx traMADol [Ultram 50 MG tab] 50 mg PO Q6HR PRN #8 tablet 10/25/17 Unknown Rx Active Meds: Active Medications Acetaminophen (Tylenol) 650 mg PO Q4H PRN PRN Reason: Pain MILD(1-3)/Fever >100.5/ACOSTA Dextrose (D50w (25gm) Syringe) 50 ml IV PRN PRN PRN Reason: Hypoglycemia Enoxaparin Sodium (Lovenox) 40 mg SUB-Q QDAY ELROY Last Admin: 02/05/18 11:25 Dose: Not Given Hydromorphone HCl (Dilaudid) 0.5 mg IV Q4H PRN PRN Reason: Pain , Severe (7-10) Last Admin: 02/05/18 10:46 Dose: 0.5 mg Sodium Chloride (Nacl 0.9% 1000 Ml) 1,000 mls @ 75 mls/hr IV DIRECT ELROY Last Admin: 02/05/18 10:25 Dose: 75 mls/hr Levofloxacin/Dextrose (Levaquin 750mg/150ml) 750 mg in 150 mls @ 100 mls/hr IV Q24HR [facility]; Protocol Last Admin: 02/05/18 10:22 Dose: 100 mls/hr Metronidazole (Flagyl 500 Mg/100 Ml) 500 mg in 100 mls @ 100 mls/hr IV Q8HR ELROY Last Admin: 02/05/18 06:16 Dose: 100 mls/hr Vancomycin HCl 1,500 mg/ (Sodium Chloride) 515 mls @ 333.333 mls/hr IV Q12H [facility] Last Admin: 02/05/18 06:16 Dose: 333.333 mls/hr Insulin Human Lispro (Humalog) 0 unit SUB-Q ACHS [facility]; Protocol Last Admin: 02/05/18 12:48 Dose: Not Given Metformin HCl (Glucophage) 500 mg PO QDDIAB [facility] Last Admin: 02/05/18 10:23 Dose: 500 mg Ondansetron HCl (Zofran) 4 mg IV Q8H PRN PRN Reason: Nausea And Vomiting Oxycodone HCl (Roxicodone) 10 mg PO Q6H PRN PRN Reason: Pain, Moderate (4-6) Last Admin: 02/05/18 06:16 Dose: 10 mg Sodium Chloride (Sodium Chloride Flush Syringe 10 Ml) 10 ml IV BID [facility] Last Admin: 02/05/18 10:24 Dose: 10 ml Sodium Chloride (Sodium Chloride Flush Syringe 10 Ml) 10 ml IV PRN PRN PRN Reason: LINE FLUSH Vancomycin HCl (Vancomycin Pharmacy To Dose) 1 each IV PKCONSULT [facility]; Protocol Physical Examination - Physical exam Narrative exam: left ankle - good active and passive RoM, mild swelling, nontender at joint lines Assessment and Plan continue observation and antibiotics, doubt ankle joint source of sepsis at this point
--- NOTE | 2018-02-05 14:48 | Progress Note ---
Assessment and Plan Assessment and plan: Patient is a 52 yo woman with a history of AVR, hypertension, tobacco dependency and dm type 2 with peripheral neuropathy, htn, dlp and abd wall cellulitis who presents with left foot pains -Sepsis skin cellulitis with left foot abscess s/p I-n-D (see below): iv abx, follow wound ctx, pain control addressed with iv morphine -Left foot abscess s/p i-n-D -DM with p. neuropathy: tight control of bg, add ssi, ada diet -Tobacco dependency ip counsel on stopping Addendum entered and electronically signed by CHARAN TANNER MD 02/02/18 14:38: The debridement was done with a scalpel. Therefore, the debridement was sharply done. Original Note: Date of procedure: 02/02/18 Pre-op diagnosis: Infected diabetic foot ulcer Post-op diagnosis: same Procedure: Incision and drainage of left diabetic foot ulcer along with debridement. Consent was obtained. Timeout was performed. Foot was prepped. I began by on javier the large nonviable area on the plantar surface of the foot. Cultures were obtained. There were areas of fibrinous exudate underneath. Along with the wound care nurse, we decided to do enzymatic debridement. The total surface area that was debrided was 3 x 5 cm. This was epidermis only. We then turned our attention to the ulcer at the base of the 1st toe. Cotton tipped applicator was inserted into the wound. Along the applicator, the skin was incised to open up the pocket. The pocket depth was about 2 to 3 cm. I debrided some of the callous along the edges of the ulcer. These areas were then cleaned and dressed by the wound care nurse. Patient tolerated procedure well. There were no complications. Findings: Purulent fluid was found underneath the nonviable skin as well as in the abscess cavity adjacent to the diabetic foot ulcer. Anesthesia: none Surgeon: CHARAN TANNER Estimated blood loss: minimal Pathology: list (culture swabs) Specimen disposition: to lab Condition: stable Disposition: floor MRI left foot reviewed and d/w Dr. Tanner, will consult Ortho to evaluate. Discussed with Dr. Belle please see his note Wound culture pending. Going to OR, discussed with Dr. Tanner History Interval history: Patient was seen and examined. Follow-up on current diagnosis of left foot pain. Overnight uneventful. Patient denies any chest pain, shortness breath, nausea/vomiting or severe headaches. Imaging, nursing note, chart, labs and old chart reviewed. Discussed with patient. Hospitalist Physical - Physical exam Narrative exam: GEN: WDWN, NAD, AWAKE, ALERT, ORIENTATED 3 HEENT: NCAT, EOMI, PERRL, OP Clear NECK: supple, no adenopathy, no thyromegaly, no JVD CVS/HEART: RRR, NORMAL S1S2, pulses present bilaterally CHEST/LUNGS: CTA B, Symmetrical chest expansion, good air entry bilaterally GI/Abdomen: soft, NTND, good bowel sounds, no guarding or rebound /Bladder: no suprapubic tenderness, no CVA or paraspinal tenderness EXT/Skin: left foot edema, red, erythematous, tender, abdominal size ulcer on the toe, lateral abscess, MSK: FROM x 4 Neuro: CN 2-12 grossly intact, no new focal deficits, lost of sensation left 3- 5 toes prior to debridement Psych: calm - Constitutional Vitals: Temp Pulse Resp BP Pulse Ox 98.7 F 90 18 129/66 95 02/05/18 07:39 02/05/18 07:39 02/05/18 07:39 02/05/18 07:39 02/05/18 07:39 Results - Labs CBC & Chem 7: 02/03/18 06:00 02/03/18 06:00 Labs: Laboratory Last Values WBC 11.9 K/mm3 (4.5-11.0) H 02/03/18 06:00 RBC 4.10 M/mm3 (3.65-5.03) 02/03/18 06:00 Hgb 11.8 gm/dl (10.1-14.3) 02/03/18 06:00 Hct 34.9 % (30.3-42.9) 02/03/18 06:00 MCV 85 fl (79-97) 02/03/18 06:00 MCH 29 pg (28-32) 02/03/18 06:00 MCHC 34 % (30-34) 02/03/18 06:00 RDW 13.9 % (13.2-15.2) 02/03/18 06:00 Plt Count 320 K/mm3 (140-440) 02/03/18 06:00 Lymph % (Auto) 9.0 % (13.4-35.0) L 02/03/18 06:00 [place] % (Auto) 8.4 % (0.0-7.3) H 02/03/18 06:00 Eos % (Auto) 0.8 % (0.0-4.3) 02/03/18 06:00 Baso % (Auto) 0.5 % (0.0-1.8) 02/03/18 06:00 Lymph # 1.1 K/mm3 (1.2-5.4) L 02/03/18 06:00 [place] # 1.0 K/mm3 (0.0-0.8) H 02/03/18 06:00 Eos # 0.1 K/mm3 (0.0-0.4) 02/03/18 06:00 Baso # 0.1 K/mm3 (0.0-0.1) 02/03/18 06:00 Seg Neutrophils % 81.3 % (40.0-70.0) H 02/03/18 06:00 Seg Neutrophils # 9.7 K/mm3 (1.8-7.7) H 02/03/18 06:00 ESR 29 mm/Hr (0-20) 02/02/18 00:28 VBG pH 7.369 (7.320-7.420) 02/01/18 23:06 Sodium 134 mmol/L (137-145) L 02/03/18 06:00 Potassium 3.5 mmol/L (3.6-5.0) L 02/03/18 06:00 Chloride 94.8 mmol/L (98-107) L 02/03/18 06:00 Carbon Dioxide 27 mmol/L (22-30) 02/03/18 06:00 Anion Gap 16 mmol/L 02/03/18 06:00 BUN 7 mg/dL (7-17) 02/03/18 06:00 Creatinine 0.5 mg/dL (0.7-1.2) L 02/03/18 06:00 Estimated GFR > 60 ml/min 02/03/18 06:00 BUN/Creatinine Ratio 14 % 02/03/18 06:00 Glucose 138 mg/dL (65-100) H 02/03/18 06:00 POC Glucose 213 (70-105) H 02/05/18 11:46 Lactic Acid 0.90 mmol/L (0.7-2.0) 02/02/18 06:51 Calcium 8.5 mg/dL (8.4-10.2) 02/03/18 06:00 Total Bilirubin 0.30 mg/dL (0.1-1.2) 02/01/18 23:06 AST 16 units/L (5-40) 02/01/18 23:06 ALT 14 units/L (7-56) 02/01/18 23:06 Alkaline Phosphatase 178 units/L (35-129) H 02/01/18 23:06 Total Creatine Kinase 40 units/L (30-135) 02/02/18 00:28 C-Reactive Protein 25.50 mg/dL (0.00-1.30) H 02/02/18 17:51 Total Protein 7.9 g/dL (6.3-8.2) 02/01/18 23:06 Albumin 3.2 g/dL (3.9-5) L 02/01/18 23:06 Albumin/Globulin Ratio 0.7 % 02/01/18 23:06 Urine Color Colorless (Yellow) 02/03/18 09:00 Urine Turbidity Clear (Clear) 02/03/18 09:00 Urine pH 7.0 (5.0-7.0) 02/03/18 09:00 Ur Specific [place] 1.002 (1.003-1.030) L 02/03/18 09:00 Urine Protein <15 mg/dl mg/dL (Negative) 02/03/18 09:00 Urine Glucose (UA) Neg mg/dL (Negative) 02/03/18 09:00 Urine Ketones Tr mg/dL (Negative) 02/03/18 09:00 Urine Blood Sm (Negative) 02/03/18 09:00 Urine Nitrite Neg (Negative) 02/03/18 09:00 Urine Bilirubin Neg (Negative) 02/03/18 09:00 Urine Urobilinogen < 2.0 mg/dL (<2.0) 02/03/18 09:00 Ur Leukocyte Esterase Neg (Negative) 02/03/18 09:00 Urine WBC (Auto) 1.0 /HPF (0.0-6.0) 02/03/18 09:00 Urine RBC (Auto) 1.0 /HPF (0.0-6.0) 02/03/18 09:00 U Epithel Cells (Auto) 5.0 /HPF (0-13.0) 02/03/18 09:00 Urine Bacteria (Auto) 3+ /HPF (Negative) 02/03/18 09:00 Urine Mucus Few /HPF 02/03/18 09:00 Urine Opiates Screen Presumptive negative 02/03/18 09:00 Urine Methadone Screen Presumptive negative 02/03/18 09:00 Ur Barbiturates Screen Presumptive negative 02/03/18 09:00 Ur Phencyclidine Scrn Presumptive negative 02/03/18 09:00 Ur Amphetamines Screen Presumptive positive 02/03/18 09:00 U Benzodiazepines Scrn Presumptive negative 02/03/18 09:00 Urine Cocaine Screen Presumptive negative 02/03/18 09:00 U Marijuana (THC) Screen Presumptive positive 02/03/18 09:00 Drugs of Abuse Note Disclamer 02/03/18 09:00
[2018-02-05] MEDS ORDERED: VERSED IV ONE (16:15)
[2018-02-05] MEDS ORDERED: DIPRIVAN 10 MG/ML IV ONE (16:17)
[2018-02-05] MEDS ORDERED: DILAUDID ONE (16:17)
[2018-02-05] MEDS ORDERED: XYLOCAINE MPF 2% ONE (16:18)
[2018-02-05] MEDS: DILAUDID IV SCH ×2 (16:26→23:18)
--- NOTE | 2018-02-05 16:55 | Vascular Lab Report ---
LOWER EXTREMITY ARTERIAL DUPLEX: REASON FOR EXAM: Peripheral arterial disease. COMMENTS ON THE RIGHT: Triphasic waveforms are seen proximally. Triphasic waveforms are seen distally. No significant velocity gradients are identified. No significant plaque is identified. Findings are consistent with normal perfusion. Findings are consistent with the ability to heal distal wounds. COMMENTS ON THE LEFT: Triphasic waveforms are seen proximally. Triphasic waveforms are seen distally. No significant velocity gradients are identified. No significant plaque is identified. Findings are consistent with normal perfusion. Findings are consistent with the ability to heal distal wounds. IMPRESSION: RIGHT: Essentially normal arterial flow. LEFT:Essentially normal arterial flow.
[2018-02-05] MEDS ORDERED: NACL 0.9% IR ONE (17:12)
[2018-02-05] MEDS ORDERED: ZOFRAN ONE (17:19)
--- NOTE | 2018-02-05 17:42 | Anesthesia Consultation ---
Anesthesia Consult and Med Hx - Airway Anesthetic Teeth Evaluation: Poor ROM Head & Neck: Adequate Mental/Hyoid Distance: Adequate Mallampati Class: Class II Intubation Access Assessment: Good - Pulmonary Exam CTA: Yes - Cardiac Exam Cardiac Exam: RRR - Pre-Operative Health Status ASA Pre-Surgery Classification: ASA3 Proposed Anesthetic Plan: General - Pulmonary Hx Smoking: Yes Hx Asthma: No COPD: No Hx Pneumonia: No - Cardiovascular System Hx Hypertension: Yes - Central Nervous System Hx Psychiatric Problems: No - Endocrine Hx End Stage Renal Disease: No
--- NOTE | 2018-02-05 17:43 | Post Anesthesia Evaluation ---
- Post Anesthesia Evaluation Patient Participated: Yes Airway Patent: Yes Stable Respiratory Function: Yes Nausea/Vomiting: No Temp > 96.8F: Yes Pain Manageable: Yes Adequeate Hydration: Yes Anesthesia Complications: No Block Receding Appropriately: Not Applicable
--- NOTE | 2018-02-05 17:43 | Anesthesia Day of Surgery ---
Anesthesia Day of Surgery - Day of Surgery Patient Examined: Yes Patient H&P Reviewed: Yes Patient is NPO: Yes
[2018-02-05] MEDS ORDERED: NACL 0.9% 1,000 ML IR ONE (17:46)
--- NOTE | 2018-02-05 17:49 | Post Operative Note ---
Date of procedure: 02/05/18 (Dictation#[id number]) Pre-op diagnosis: Left foot infected diabetic ulcer Post-op diagnosis: same Findings: Abscess pocket found in the subcutaneous layer underneath the first MTP joint. 3 wounds were connected. There was exposed flexor tendon of the great toe. Tendon sheath otherwise appeared healthy Procedure: Incision, and drainage, and debridement of left foot abscess Anesthesia: GETA Surgeon: CHARAN TANNER Estimated blood loss: minimal Pathology: none Condition: stable Disposition: PACU
--- NOTE | 2018-02-05 18:21 | Operative Report ---
PREOPERATIVE DIAGNOSES: Infected left foot diabetic ulcer and abscess. POSTOPERATIVE DIAGNOSES: Infected left foot diabetic ulcer and abscess. PROCEDURE: Incision, drainage and debridement of left foot abscess. ATTENDING PHYSICIAN: Guzman Jacobson MD ANESTHESIA: General. ESTIMATED BLOOD LOSS: Minimal. FINDINGS: There were 3 areas of drainage on the medial aspect of the left foot. All of these were found to be in connection. There was purulent material in this area. This was restricted primarily to the subcutaneous portion of the foot in the area of the first MTP joint. There was a small amount of first toe flexor tendon exposure. The tendon sheath otherwise was viable. I did not see any other areas of necrosis. SPECIMENS: None. COMPLICATIONS: Stable, transferred to Recovery Room. INDICATIONS: This is a 52-year-old female who was originally admitted for this diabetic foot infection. Bedside I and D was performed. Reevaluation today suggested that this was not sufficient and she would need a more formal incision and drainage. Procedure, risks, and benefits were explained to the patient. Risks include, but not limited to infection, bleeding, pain, injury to surrounding structures, possible need for further surgery in the future. The patient understood and consented. Alternatives were discussed. The patient elected to proceed with surgery. All questions were answered. DESCRIPTION OF PROCEDURE: The patient was brought to the operating room and placed on the table in supine position. After adequate general anesthesia established, the patient was prepped and draped in usual sterile fashion. Antibiotics were already been given from the floor. SCD was placed on the right leg. Sterile prep and drape was performed. Time out was performed. I began by probing the wounds. It did appear that they connected underneath the area of the MTP joint. I therefore opened the overlying skin. They indeed clearly showed 1 large abscess cavity. I sharply debrided the thickened callus skin from overlying the MTP joint and around the first toe ulcer. All the skin was sharply debrided off with scalpel in total about 2 square cm was removed. Infected tissue was all sharply removed with scissors. Wound was thoroughly irrigated. Hemostasis was achieved with electrocautery. At this point, wound looked very clean. I took a very close look. I did not see any other areas of necrosis or nonviability. Everything looked healthy, looked fairly clean. In order to have good hemostasis, I placed Surgicel at the base and then cover that with a moist dressing. Fluffs were placed over that and then the foot was wrapped with Kerlix and then Coban taking care to not make it too tight to avoid constricting the blood flow. The patient tolerated the procedure well. There were no complications. All counts were correct at the end of the case. JOB# [id number] ERMA/YURI
[2018-02-06] MEDS: DILAUDID IV PRN ×5 (03:48→19:59)
[2018-02-06] MEDS: VANCOMYCIN 1,500 MG in NACL 0.9% 500 ML 500 ML IV SCH (06:06)
[2018-02-06] MEDS: HumaLOG SUB-Q SCH ×5 (08:54→21:46)
[2018-02-06] MEDS: GLUCOPHAGE PO SCH (08:55)
[2018-02-06] MEDS: LEVAQUIN PO SCH (09:02)
[2018-02-06] MEDS: SODIUM CHLORIDE FLUSH SYRINGE 10 ML IV SCH (09:03)
[2018-02-06] MEDS: LOVENOX SUB-Q SCH (09:03)
[2018-02-06] MEDS: NACL 0.9% 1000 ML 1,000 ML IV SCH (12:20)
--- NOTE | 2018-02-06 13:55 | Progress Note ---
Assessment and Plan Assessment and plan: Patient is a 52 yo woman with a history of AVR, hypertension, tobacco dependency and dm type 2 with peripheral neuropathy, htn, dlp and abd wall cellulitis who presents with left foot pains -Sepsis skin cellulitis with left foot abscess s/p I-n-D (see below): iv abx, follow wound ctx, pain control addressed with iv morphine -Left foot abscess s/p i-n-D -DM with p. neuropathy: tight control of bg, add ssi, ada diet -Tobacco dependency certified alcohol counselor on stopping Addendum entered and electronically signed by CHARAN TANNER MD 02/02/18 14:38: The debridement was done with a scalpel. Therefore, the debridement was sharply done. Original Note: Date of procedure: 02/02/18 Pre-op diagnosis: Infected diabetic foot ulcer Post-op diagnosis: same Procedure: Incision and drainage of left diabetic foot ulcer along with debridement. Consent was obtained. Timeout was performed. Foot was prepped. I began by on javier the large nonviable area on the plantar surface of the foot. Cultures were obtained. There were areas of fibrinous exudate underneath. Along with the wound care nurse, we decided to do enzymatic debridement. The total surface area that was debrided was 3 x 5 cm. This was epidermis only. We then turned our attention to the ulcer at the base of the 1st toe. Cotton tipped applicator was inserted into the wound. Along the applicator, the skin was incised to open up the pocket. The pocket depth was about 2 to 3 cm. I debrided some of the callous along the edges of the ulcer. These areas were then cleaned and dressed by the wound care nurse. Patient tolerated procedure well. There were no complications. Findings: Purulent fluid was found underneath the nonviable skin as well as in the abscess cavity adjacent to the diabetic foot ulcer. Anesthesia: none Surgeon: CHARAN TANNER Estimated blood loss: minimal Pathology: list (culture swabs) Specimen disposition: to lab Condition: stable Disposition: floor MRI left foot reviewed and d/w Dr. Tanner, will consult Ortho to evaluate. Discussed with Dr. Belle please see his note Wound culture pending. Going to OR, discussed with Dr. Tanner==> 02/05/18: Pre-op diagnosis: Left foot infected diabetic ulcer Post-op diagnosis: same Findings: Abscess pocket found in the subcutaneous layer underneath the first MTP joint. 3 wounds were connected. There was exposed flexor tendon of the great toe. Tendon sheath otherwise appeared healthy Procedure: Incision, and drainage, and debridement of left foot abscess Disposition: once abx setup History Interval history: Patient was seen and examined. Follow-up on current diagnosis of left foot pain. Overnight uneventful. Patient denies any chest pain, shortness breath, nausea/vomiting or severe headaches. Imaging, nursing note, chart, labs and old chart reviewed. Discussed with patient. Hospitalist Physical - Physical exam Narrative exam: GEN: WDWN, NAD, AWAKE, ALERT, ORIENTATED 3 HEENT: NCAT, EOMI, PERRL, OP Clear NECK: supple, no adenopathy, no thyromegaly, no JVD CVS/HEART: RRR, NORMAL S1S2, pulses present bilaterally CHEST/LUNGS: CTA B, Symmetrical chest expansion, good air entry bilaterally GI/Abdomen: soft, NTND, good bowel sounds, no guarding or rebound /Bladder: no suprapubic tenderness, no CVA or paraspinal tenderness EXT/Skin: left foot edema, red, erythematous, tender, abdominal size ulcer on the toe, lateral abscess, MSK: FROM x 4 Neuro: CN 2-12 grossly intact, no new focal deficits, lost of sensation left 3- 5 toes prior to debridement Psych: calm - Constitutional Vitals: Temp Pulse Resp BP Pulse Ox 97.7 F 86 18 155/80 96 02/06/18 07:44 02/06/18 07:44 02/06/18 07:44 02/06/18 07:44 02/06/18 07:44 Results - Labs CBC & Chem 7: 02/03/18 06:00 02/03/18 06:00 Labs: Laboratory Last Values WBC 11.9 K/mm3 (4.5-11.0) H 02/03/18 06:00 RBC 4.10 M/mm3 (3.65-5.03) 02/03/18 06:00 Hgb 11.8 gm/dl (10.1-14.3) 02/03/18 06:00 Hct 34.9 % (30.3-42.9) 02/03/18 06:00 MCV 85 fl (79-97) 02/03/18 06:00 MCH 29 pg (28-32) 02/03/18 06:00 MCHC 34 % (30-34) 02/03/18 06:00 RDW 13.9 % (13.2-15.2) 02/03/18 06:00 Plt Count 320 K/mm3 (140-440) 02/03/18 06:00 Lymph % (Auto) 9.0 % (13.4-35.0) L 02/03/18 06:00 [place] % (Auto) 8.4 % (0.0-7.3) H 02/03/18 06:00 Eos % (Auto) 0.8 % (0.0-4.3) 02/03/18 06:00 Baso % (Auto) 0.5 % (0.0-1.8) 02/03/18 06:00 Lymph # 1.1 K/mm3 (1.2-5.4) L 02/03/18 06:00 [place] # 1.0 K/mm3 (0.0-0.8) H 02/03/18 06:00 Eos # 0.1 K/mm3 (0.0-0.4) 02/03/18 06:00 Baso # 0.1 K/mm3 (0.0-0.1) 02/03/18 06:00 Seg Neutrophils % 81.3 % (40.0-70.0) H 02/03/18 06:00 Seg Neutrophils # 9.7 K/mm3 (1.8-7.7) H 02/03/18 06:00 ESR 29 mm/Hr (0-20) 02/02/18 00:28 VBG pH 7.369 (7.320-7.420) 02/01/18 23:06 Sodium 134 mmol/L (137-145) L 02/03/18 06:00 Potassium 3.5 mmol/L (3.6-5.0) L 02/03/18 06:00 Chloride 94.8 mmol/L (98-107) L 02/03/18 06:00 Carbon Dioxide 27 mmol/L (22-30) 02/03/18 06:00 Anion Gap 16 mmol/L 02/03/18 06:00 BUN 7 mg/dL (7-17) 02/03/18 06:00 Creatinine 0.5 mg/dL (0.7-1.2) L 02/03/18 06:00 Estimated GFR > 60 ml/min 02/03/18 06:00 BUN/Creatinine Ratio 14 % 02/03/18 06:00 Glucose 138 mg/dL (65-100) H 02/03/18 06:00 POC Glucose 190 (70-105) H 02/06/18 11:38 Lactic Acid 0.90 mmol/L (0.7-2.0) 02/02/18 06:51 Calcium 8.5 mg/dL (8.4-10.2) 02/03/18 06:00 Total Bilirubin 0.30 mg/dL (0.1-1.2) 02/01/18 23:06 AST 16 units/L (5-40) 02/01/18 23:06 ALT 14 units/L (7-56) 02/01/18 23:06 Alkaline Phosphatase 178 units/L (35-129) H 02/01/18 23:06 Total Creatine Kinase 40 units/L (30-135) 02/02/18 00:28 C-Reactive Protein 25.50 mg/dL (0.00-1.30) H 02/02/18 17:51 Total Protein 7.9 g/dL (6.3-8.2) 02/01/18 23:06 Albumin 3.2 g/dL (3.9-5) L 02/01/18 23:06 Albumin/Globulin Ratio 0.7 % 02/01/18 23:06 Urine Color Colorless (Yellow) 02/03/18 09:00 Urine Turbidity Clear (Clear) 02/03/18 09:00 Urine pH 7.0 (5.0-7.0) 02/03/18 09:00 Ur Specific [place] 1.002 (1.003-1.030) L 02/03/18 09:00 Urine Protein <15 mg/dl mg/dL (Negative) 02/03/18 09:00 Urine Glucose (UA) Neg mg/dL (Negative) 02/03/18 09:00 Urine Ketones Tr mg/dL (Negative) 02/03/18 09:00 Urine Blood Sm (Negative) 02/03/18 09:00 Urine Nitrite Neg (Negative) 02/03/18 09:00 Urine Bilirubin Neg (Negative) 02/03/18 09:00 Urine Urobilinogen < 2.0 mg/dL (<2.0) 02/03/18 09:00 Ur Leukocyte Esterase Neg (Negative) 02/03/18 09:00 Urine WBC (Auto) 1.0 /HPF (0.0-6.0) 02/03/18 09:00 Urine RBC (Auto) 1.0 /HPF (0.0-6.0) 02/03/18 09:00 U Epithel Cells (Auto) 5.0 /HPF (0-13.0) 02/03/18 09:00 Urine Bacteria (Auto) 3+ /HPF (Negative) 02/03/18 09:00 Urine Mucus Few /HPF 02/03/18 09:00 Vancomycin Trough 8.3 ug/mL (5.0-20.0) 02/05/18 19:43 Urine Opiates Screen Presumptive negative 02/03/18 09:00 Urine Methadone Screen Presumptive negative 02/03/18 09:00 Ur Barbiturates Screen Presumptive negative 02/03/18 09:00 Ur Phencyclidine Scrn Presumptive negative 02/03/18 09:00 Ur Amphetamines Screen Presumptive positive 02/03/18 09:00 U Benzodiazepines Scrn Presumptive negative 02/03/18 09:00 Urine Cocaine Screen Presumptive negative 02/03/18 09:00 U Marijuana (THC) Screen Presumptive positive 02/03/18 09:00 Drugs of Abuse Note Disclamer 02/03/18 09:00
[2018-02-06] MEDS: VANCOMYCIN 1,250 MG in NACL 0.9% 250ML 250 ML IV SCH ×2 (14:48→21:44)
--- NOTE | 2018-02-06 15:38 | Progress Note ---
Assessment and Plan 52 yo F s/p Incision, and drainage, and debridement of left foot abscess POD 1 Plan: 1. continue with local wound care 2. continue with abx per ID 3. Off loading of toes of left foot - I discussed this with patient 4. strict glucose control Subjective Date of service: 02/06/18 Narrative: Pt seen and examined. States she feels much better after surgery. No overnight events. No f/c. Objective Vital Signs - 12hr 02/06/18 02/06/18 04:41 07:44 Temperature 98.9 F 97.7 F Pulse Rate 82 86 Respiratory 20 18 Rate Blood Pressure 138/69 155/80 O2 Sat by Pulse 96 96 Oximetry - General physical appearance Narrative Exam: Gen: AAOx3. NAD Left foot: dressing removed. Packing and surgicel removed from wound. Wound bed is clean with minimal slough. No additional drainage. No erythema. Wound packed with 2 pieces of silver alginate and covered with 4x4 gauze and wrapped with kerlex. - Labs 02/03/18 06:00 02/03/18 06:00
[2018-02-06] MEDS: MYCOSTATIN TP SCH (20:01)
[2018-02-06] MEDS: ROXICODONE PO PRN (22:33)
[2018-02-07] MEDS: SODIUM CHLORIDE FLUSH SYRINGE 10 ML IV SCH ×3 (04:57→21:57)
[2018-02-07] MEDS: DILAUDID IV PRN ×2 (04:57→10:02)
[2018-02-07] MEDS: NACL 0.9% 1000 ML 1,000 ML IV SCH (05:10)
[2018-02-07] MEDS: VANCOMYCIN 1,250 MG in NACL 0.9% 250ML 250 ML IV SCH ×3 (06:09→21:56)
[2018-02-07] MEDS: HumaLOG SUB-Q SCH ×3 (07:30→16:38)
[2018-02-07] MEDS: MYCOSTATIN TP SCH ×3 (08:00→20:45)
[2018-02-07] MEDS: LEVAQUIN PO SCH (09:54)
[2018-02-07] MEDS: LOVENOX SUB-Q SCH (09:54)
[2018-02-07] MEDS: GLUCOPHAGE PO SCH (09:54)
--- NOTE | 2018-02-07 12:35 | Progress Note ---
Assessment and Plan Assessment and plan: Patient is a 52 yo woman with a history of AVR, hypertension, tobacco dependency and dm type 2 with peripheral neuropathy, htn, dlp and abd wall cellulitis who presents with left foot pains -Sepsis skin cellulitis with left foot abscess s/p I-n-D (see below): iv abx, follow wound ctx, pain control addressed with iv morphine -Left foot abscess s/p i-n-D -DM with p. neuropathy: tight control of bg, add ssi, ada diet -Tobacco dependency student success counselor on stopping Addendum entered and electronically signed by CHARAN TANNER MD 02/02/18 14:38: The debridement was done with a scalpel. Therefore, the debridement was sharply done. Original Note: Date of procedure: 02/02/18 Pre-op diagnosis: Infected diabetic foot ulcer Post-op diagnosis: same Procedure: Incision and drainage of left diabetic foot ulcer along with debridement. Consent was obtained. Timeout was performed. Foot was prepped. I began by on javier the large nonviable area on the plantar surface of the foot. Cultures were obtained. There were areas of fibrinous exudate underneath. Along with the wound care nurse, we decided to do enzymatic debridement. The total surface area that was debrided was 3 x 5 cm. This was epidermis only. We then turned our attention to the ulcer at the base of the 1st toe. Cotton tipped applicator was inserted into the wound. Along the applicator, the skin was incised to open up the pocket. The pocket depth was about 2 to 3 cm. I debrided some of the callous along the edges of the ulcer. These areas were then cleaned and dressed by the wound care nurse. Patient tolerated procedure well. There were no complications. Findings: Purulent fluid was found underneath the nonviable skin as well as in the abscess cavity adjacent to the diabetic foot ulcer. Anesthesia: none Surgeon: CHARAN TANNER Estimated blood loss: minimal Pathology: list (culture swabs) Specimen disposition: to lab Condition: stable Disposition: floor MRI left foot reviewed and d/w Dr. Tanner, will consult Ortho to evaluate. Discussed with Dr. Belle please see his note Wound culture pending===> sensitivities not listed, await ID re-evaluation tomorrow Going to OR, discussed with Dr. Tanner==> 02/05/18: Pre-op diagnosis: Left foot infected diabetic ulcer Post-op diagnosis: same Findings: Abscess pocket found in the subcutaneous layer underneath the first MTP joint. 3 wounds were connected. There was exposed flexor tendon of the great toe. Tendon sheath otherwise appeared healthy Procedure: Incision, and drainage, and debridement of left foot abscess Disposition: once abx setup History Interval history: Patient was seen and examined. Follow-up on current diagnosis of left foot pain. Overnight uneventful. Patient denies any chest pain, shortness breath, nausea/vomiting or severe headaches. Imaging, nursing note, chart, labs and old chart reviewed. Discussed with patient. Hospitalist Physical - Physical exam Narrative exam: GEN: WDWN, NAD, AWAKE, ALERT, ORIENTATED 3 HEENT: NCAT, EOMI, PERRL, OP Clear NECK: supple, no adenopathy, no thyromegaly, no JVD CVS/HEART: RRR, NORMAL S1S2, pulses present bilaterally CHEST/LUNGS: CTA B, Symmetrical chest expansion, good air entry bilaterally GI/Abdomen: soft, NTND, good bowel sounds, no guarding or rebound /Bladder: no suprapubic tenderness, no CVA or paraspinal tenderness EXT/Skin: left foot edema, red, erythematous, tender, abdominal size ulcer on the toe, lateral abscess, MSK: FROM x 4 Neuro: CN 2-12 grossly intact, no new focal deficits, lost of sensation left 3- 5 toes prior to debridement Psych: calm - Constitutional Vitals: Temp Pulse Resp BP Pulse Ox 98.1 F 89 20 118/73 98 02/07/18 07:34 02/07/18 07:34 02/07/18 07:34 02/07/18 07:34 02/07/18 07:34 Results - Labs CBC & Chem 7: 02/03/18 06:00 02/03/18 06:00 Labs: Laboratory Last Values WBC 11.9 K/mm3 (4.5-11.0) H 02/03/18 06:00 RBC 4.10 M/mm3 (3.65-5.03) 02/03/18 06:00 Hgb 11.8 gm/dl (10.1-14.3) 02/03/18 06:00 Hct 34.9 % (30.3-42.9) 02/03/18 06:00 MCV 85 fl (79-97) 02/03/18 06:00 MCH 29 pg (28-32) 02/03/18 06:00 MCHC 34 % (30-34) 02/03/18 06:00 RDW 13.9 % (13.2-15.2) 02/03/18 06:00 Plt Count 320 K/mm3 (140-440) 02/03/18 06:00 Lymph % (Auto) 9.0 % (13.4-35.0) L 02/03/18 06:00 [place] % (Auto) 8.4 % (0.0-7.3) H 02/03/18 06:00 Eos % (Auto) 0.8 % (0.0-4.3) 02/03/18 06:00 Baso % (Auto) 0.5 % (0.0-1.8) 02/03/18 06:00 Lymph # 1.1 K/mm3 (1.2-5.4) L 02/03/18 06:00 [place] # 1.0 K/mm3 (0.0-0.8) H 02/03/18 06:00 Eos # 0.1 K/mm3 (0.0-0.4) 02/03/18 06:00 Baso # 0.1 K/mm3 (0.0-0.1) 02/03/18 06:00 Seg Neutrophils % 81.3 % (40.0-70.0) H 02/03/18 06:00 Seg Neutrophils # 9.7 K/mm3 (1.8-7.7) H 02/03/18 06:00 ESR 29 mm/Hr (0-20) 02/02/18 00:28 VBG pH 7.369 (7.320-7.420) 02/01/18 23:06 Sodium 134 mmol/L (137-145) L 02/03/18 06:00 Potassium 3.5 mmol/L (3.6-5.0) L 02/03/18 06:00 Chloride 94.8 mmol/L (98-107) L 02/03/18 06:00 Carbon Dioxide 27 mmol/L (22-30) 02/03/18 06:00 Anion Gap 16 mmol/L 02/03/18 06:00 BUN 7 mg/dL (7-17) 02/03/18 06:00 Creatinine 0.5 mg/dL (0.7-1.2) L 02/03/18 06:00 Estimated GFR > 60 ml/min 02/03/18 06:00 BUN/Creatinine Ratio 14 % 02/03/18 06:00 Glucose 138 mg/dL (65-100) H 02/03/18 06:00 POC Glucose 167 (70-105) H 02/07/18 12:23 Lactic Acid 0.90 mmol/L (0.7-2.0) 02/02/18 06:51 Calcium 8.5 mg/dL (8.4-10.2) 02/03/18 06:00 Total Bilirubin 0.30 mg/dL (0.1-1.2) 02/01/18 23:06 AST 16 units/L (5-40) 02/01/18 23:06 ALT 14 units/L (7-56) 02/01/18 23:06 Alkaline Phosphatase 178 units/L (35-129) H 02/01/18 23:06 Total Creatine Kinase 40 units/L (30-135) 02/02/18 00:28 C-Reactive Protein 25.50 mg/dL (0.00-1.30) H 02/02/18 17:51 Total Protein 7.9 g/dL (6.3-8.2) 02/01/18 23:06 Albumin 3.2 g/dL (3.9-5) L 02/01/18 23:06 Albumin/Globulin Ratio 0.7 % 02/01/18 23:06 Urine Color Colorless (Yellow) 02/03/18 09:00 Urine Turbidity Clear (Clear) 02/03/18 09:00 Urine pH 7.0 (5.0-7.0) 02/03/18 09:00 Ur Specific [place] 1.002 (1.003-1.030) L 02/03/18 09:00 Urine Protein <15 mg/dl mg/dL (Negative) 02/03/18 09:00 Urine Glucose (UA) Neg mg/dL (Negative) 02/03/18 09:00 Urine Ketones Tr mg/dL (Negative) 02/03/18 09:00 Urine Blood Sm (Negative) 02/03/18 09:00 Urine Nitrite Neg (Negative) 02/03/18 09:00 Urine Bilirubin Neg (Negative) 02/03/18 09:00 Urine Urobilinogen < 2.0 mg/dL (<2.0) 02/03/18 09:00 Ur Leukocyte Esterase Neg (Negative) 02/03/18 09:00 Urine WBC (Auto) 1.0 /HPF (0.0-6.0) 02/03/18 09:00 Urine RBC (Auto) 1.0 /HPF (0.0-6.0) 02/03/18 09:00 U Epithel Cells (Auto) 5.0 /HPF (0-13.0) 02/03/18 09:00 Urine Bacteria (Auto) 3+ /HPF (Negative) 02/03/18 09:00 Urine Mucus Few /HPF 02/03/18 09:00 Vancomycin Trough 8.3 ug/mL (5.0-20.0) 02/05/18 19:43 Urine Opiates Screen Presumptive negative 02/03/18 09:00 Urine Methadone Screen Presumptive negative 02/03/18 09:00 Ur Barbiturates Screen Presumptive negative 02/03/18 09:00 Ur Phencyclidine Scrn Presumptive negative 02/03/18 09:00 Ur Amphetamines Screen Presumptive positive 02/03/18 09:00 U Benzodiazepines Scrn Presumptive negative 02/03/18 09:00 Urine Cocaine Screen Presumptive negative 02/03/18 09:00 U Marijuana (THC) Screen Presumptive positive 02/03/18 09:00 Drugs of Abuse Note Disclamer 02/03/18 09:00
--- NOTE | 2018-02-07 13:00 | Progress Note ---
Assessment and Plan 52 yo F s/p Incision, and drainage, and debridement of left foot abscess POD 2 Plan: 1. Local wound care - dressing changed yesterday. Dr. Jacobson to change dressing tomorrow. 2. continue with abx per ID 3. Off loading of toes of left foot - I discussed this with patient 4. strict glucose control Subjective Date of service: 02/07/18 Narrative: Pt seen and examined. Feels better today. States her left ankle swelling and foot pain is significantly better. No f/c. Objective Vital Signs - 12hr 02/07/18 07:34 Temperature 98.1 F Pulse Rate 89 Respiratory 20 Rate Blood Pressure 118/73 O2 Sat by Pulse 98 Oximetry - General physical appearance Narrative Exam: Gen: AAOx3. NAD L foot: dressing c/d/i. No erythema or fluctuance around wound. Packing in place. Ankle edema improved. - Labs 02/03/18 06:00 02/03/18 06:00
[2018-02-07] MEDS: ROXICODONE PO PRN ×2 (15:33→21:51)
[2018-02-08] MEDS: HumaLOG SUB-Q SCH ×5 (01:09→22:28)
[2018-02-08 05:38] LABS: Hemoglobin 11.5 gm/dl (10.1-14.3); Mean Corpuscular HGB Conc 34 % (30-34); Mean Corpuscular Hemoglobin 29 pg (28-32); Mean Corpuscular Volume 86 fl (79-97); Platelet Count 321 K/mm3 (140-440); Red Blood Count 3.98 M/mm3 (3.65-5.03)
[2018-02-08] MEDS: ROXICODONE PO PRN ×2 (05:39→10:41)
[2018-02-08] MEDS: VANCOMYCIN 1,250 MG in NACL 0.9% 250ML 250 ML IV SCH ×3 (05:40→21:52)
[2018-02-08 05:59] LABS: BUN/Creatinine Ratio 12; Blood Urea Nitrogen 6 mg/dL (7-17); Calcium 8.6 mg/dL (8.4-10.2); Hemolysis Index 1
[2018-02-08] MEDS: GLUCOPHAGE PO SCH (09:12)
[2018-02-08] MEDS: LEVAQUIN PO SCH (09:34)
[2018-02-08] MEDS: LOVENOX SUB-Q SCH (09:34)
[2018-02-08] MEDS: SODIUM CHLORIDE FLUSH SYRINGE 10 ML IV SCH ×2 (09:35→21:58)
[2018-02-08] MEDS: MYCOSTATIN TP SCH ×3 (09:36→21:52)
--- NOTE | 2018-02-08 12:31 | Progress Note ---
Assessment and Plan Assessment and plan: Patient is a 52 yo woman with a history of AVR, hypertension, tobacco dependency and dm type 2 with peripheral neuropathy, htn, dlp and abd wall cellulitis who presents with left foot pains -Sepsis skin cellulitis with left foot abscess s/p I-n-D (see below): iv abx, follow wound ctx, pain control addressed with iv morphine -Left foot abscess s/p i-n-D -DM with p. neuropathy: tight control of bg, add ssi, ada diet -Tobacco dependency tariff counsel on stopping Addendum entered and electronically signed by CHARAN TANNER MD 02/02/18 14:38: The debridement was done with a scalpel. Therefore, the debridement was sharply done. Original Note: Date of procedure: 02/02/18 Pre-op diagnosis: Infected diabetic foot ulcer Post-op diagnosis: same Procedure: Incision and drainage of left diabetic foot ulcer along with debridement. Consent was obtained. Timeout was performed. Foot was prepped. I began by on javier the large nonviable area on the plantar surface of the foot. Cultures were obtained. There were areas of fibrinous exudate underneath. Along with the wound care nurse, we decided to do enzymatic debridement. The total surface area that was debrided was 3 x 5 cm. This was epidermis only. We then turned our attention to the ulcer at the base of the 1st toe. Cotton tipped applicator was inserted into the wound. Along the applicator, the skin was incised to open up the pocket. The pocket depth was about 2 to 3 cm. I debrided some of the callous along the edges of the ulcer. These areas were then cleaned and dressed by the wound care nurse. Patient tolerated procedure well. There were no complications. Findings: Purulent fluid was found underneath the nonviable skin as well as in the abscess cavity adjacent to the diabetic foot ulcer. Anesthesia: none Surgeon: CHARAN TANNER Estimated blood loss: minimal Pathology: list (culture swabs) Specimen disposition: to lab Condition: stable Disposition: floor MRI left foot reviewed and d/w Dr. Tanner, will consult Ortho to evaluate. Discussed with Dr. Belle please see his note Wound culture pending===> sensitivities not listed, await ID re-evaluation tomorrow Going to OR, discussed with Dr. Tanner==> 02/05/18: Pre-op diagnosis: Left foot infected diabetic ulcer Post-op diagnosis: same Findings: Abscess pocket found in the subcutaneous layer underneath the first MTP joint. 3 wounds were connected. There was exposed flexor tendon of the great toe. Tendon sheath otherwise appeared healthy Procedure: Incision, and drainage, and debridement of left foot abscess Disposition: once abx setup, I have reached out to Dr. Boaz ALVAREZ History Interval history: Patient was seen and examined. Follow-up on current diagnosis of left foot pain. Overnight uneventful. Patient denies any chest pain, shortness breath, nausea/vomiting or severe headaches. Imaging, nursing note, chart, labs and old chart reviewed. Discussed with patient. Hospitalist Physical - Physical exam Narrative exam: GEN: WDWN, NAD, AWAKE, ALERT, ORIENTATED 3 HEENT: NCAT, EOMI, PERRL, OP Clear NECK: supple, no adenopathy, no thyromegaly, no JVD CVS/HEART: RRR, NORMAL S1S2, pulses present bilaterally CHEST/LUNGS: CTA B, Symmetrical chest expansion, good air entry bilaterally GI/Abdomen: soft, NTND, good bowel sounds, no guarding or rebound /Bladder: no suprapubic tenderness, no CVA or paraspinal tenderness EXT/Skin: left foot edema, red, erythematous, tender, abdominal size ulcer on the toe, lateral abscess, MSK: FROM x 4 Neuro: CN 2-12 grossly intact, no new focal deficits, lost of sensation left 3- 5 toes prior to debridement Psych: calm - Constitutional Vitals: Temp Pulse Resp BP Pulse Ox 98.6 F 99 H 20 149/90 97 02/08/18 07:32 02/08/18 07:32 02/08/18 07:32 02/08/18 07:32 02/08/18 07:32 Results - Labs CBC & Chem 7: 02/08/18 05:00 02/08/18 05:00 Labs: Laboratory Last Values WBC 10.4 K/mm3 (4.5-11.0) 02/08/18 05:00 RBC 3.98 M/mm3 (3.65-5.03) 02/08/18 05:00 Hgb 11.5 gm/dl (10.1-14.3) 02/08/18 05:00 Hct 34.0 % (30.3-42.9) 02/08/18 05:00 MCV 86 fl (79-97) 02/08/18 05:00 MCH 29 pg (28-32) 02/08/18 05:00 MCHC 34 % (30-34) 02/08/18 05:00 RDW 14.0 % (13.2-15.2) 02/08/18 05:00 Plt Count 321 K/mm3 (140-440) 02/08/18 05:00 Lymph % (Auto) 9.0 % (13.4-35.0) L 02/03/18 06:00 [place] % (Auto) 8.4 % (0.0-7.3) H 02/03/18 06:00 Eos % (Auto) 0.8 % (0.0-4.3) 02/03/18 06:00 Baso % (Auto) 0.5 % (0.0-1.8) 02/03/18 06:00 Lymph # 1.1 K/mm3 (1.2-5.4) L 02/03/18 06:00 [place] # 1.0 K/mm3 (0.0-0.8) H 02/03/18 06:00 Eos # 0.1 K/mm3 (0.0-0.4) 02/03/18 06:00 Baso # 0.1 K/mm3 (0.0-0.1) 02/03/18 06:00 Seg Neutrophils % 81.3 % (40.0-70.0) H 02/03/18 06:00 Seg Neutrophils # 9.7 K/mm3 (1.8-7.7) H 02/03/18 06:00 ESR 29 mm/Hr (0-20) 02/02/18 00:28 VBG pH 7.369 (7.320-7.420) 02/01/18 23:06 Sodium 139 mmol/L (137-145) 02/08/18 05:00 Potassium 3.7 mmol/L (3.6-5.0) 02/08/18 05:00 Chloride 99.2 mmol/L (98-107) 02/08/18 05:00 Carbon Dioxide 27 mmol/L (22-30) 02/08/18 05:00 Anion Gap 17 mmol/L 02/08/18 05:00 BUN 6 mg/dL (7-17) L 02/08/18 05:00 Creatinine 0.5 mg/dL (0.7-1.2) L 02/08/18 05:00 Estimated GFR > 60 ml/min 02/08/18 05:00 BUN/Creatinine Ratio 12 % 02/08/18 05:00 Glucose 200 mg/dL (65-100) H 02/08/18 05:00 POC Glucose 211 (70-105) H 02/08/18 11:24 Lactic Acid 0.90 mmol/L (0.7-2.0) 02/02/18 06:51 Calcium 8.6 mg/dL (8.4-10.2) 02/08/18 05:00 Total Bilirubin 0.30 mg/dL (0.1-1.2) 02/01/18 23:06 AST 16 units/L (5-40) 02/01/18 23:06 ALT 14 units/L (7-56) 02/01/18 23:06 Alkaline Phosphatase 178 units/L (35-129) H 02/01/18 23:06 Total Creatine Kinase 40 units/L (30-135) 02/02/18 00:28 C-Reactive Protein 25.50 mg/dL (0.00-1.30) H 02/02/18 17:51 Total Protein 7.9 g/dL (6.3-8.2) 02/01/18 23:06 Albumin 3.2 g/dL (3.9-5) L 02/01/18 23:06 Albumin/Globulin Ratio 0.7 % 02/01/18 23:06 Urine Color Colorless (Yellow) 02/03/18 09:00 Urine Turbidity Clear (Clear) 02/03/18 09:00 Urine pH 7.0 (5.0-7.0) 02/03/18 09:00 Ur Specific [place] 1.002 (1.003-1.030) L 02/03/18 09:00 Urine Protein <15 mg/dl mg/dL (Negative) 02/03/18 09:00 Urine Glucose (UA) Neg mg/dL (Negative) 02/03/18 09:00 Urine Ketones Tr mg/dL (Negative) 02/03/18 09:00 Urine Blood Sm (Negative) 02/03/18 09:00 Urine Nitrite Neg (Negative) 02/03/18 09:00 Urine Bilirubin Neg (Negative) 02/03/18 09:00 Urine Urobilinogen < 2.0 mg/dL (<2.0) 02/03/18 09:00 Ur Leukocyte Esterase Neg (Negative) 02/03/18 09:00 Urine WBC (Auto) 1.0 /HPF (0.0-6.0) 02/03/18 09:00 Urine RBC (Auto) 1.0 /HPF (0.0-6.0) 02/03/18 09:00 U Epithel Cells (Auto) 5.0 /HPF (0-13.0) 02/03/18 09:00 Urine Bacteria (Auto) 3+ /HPF (Negative) 02/03/18 09:00 Urine Mucus Few /HPF 02/03/18 09:00 Vancomycin Trough 8.3 ug/mL (5.0-20.0) 02/05/18 19:43 Urine Opiates Screen Presumptive negative 02/03/18 09:00 Urine Methadone Screen Presumptive negative 02/03/18 09:00 Ur Barbiturates Screen Presumptive negative 02/03/18 09:00 Ur Phencyclidine Scrn Presumptive negative 02/03/18 09:00 Ur Amphetamines Screen Presumptive positive 02/03/18 09:00 U Benzodiazepines Scrn Presumptive negative 02/03/18 09:00 Urine Cocaine Screen Presumptive negative 02/03/18 09:00 U Marijuana (THC) Screen Presumptive positive 02/03/18 09:00 Drugs of Abuse Note Disclamer 02/03/18 09:00
--- NOTE | 2018-02-08 13:17 | Progress Note ---
Assessment and Plan - Patient Problems (1) Diabetic infection of left foot Current Visit: Yes Status: Acute Plan to address problem: s/p I&D of left foot - 02/05 POD#3. Clinically, the patient is stable. WBC has improved. Looks good. I examine the wound with the wound care nurse. We will do silver alginate treatments every other day. No further debridement needed at this time. Okay for discharge from my standpoint. Can follow up as an outpatient in the wound care clinic. Please call if there any questions. Subjective Date of service: 02/08/18 Patient Reports: Positive: no new complaints, feels better Objective Vital Signs - 12hr 02/08/18 02/08/18 07:32 12:26 Temperature 98.6 F 98.9 F Pulse Rate 99 H 96 H Respiratory 20 20 Rate Blood Pressure 149/90 152/79 O2 Sat by Pulse 97 97 Oximetry - General physical appearance well developed, well nourished, no distress, no pain - Integumentary other (it appears clean. Minimal fibrinous exudate is seen at the proximal end of the wound. Erythema is markedly improved. Swelling is decreased.) - Labs 02/08/18 05:00 02/08/18 05:00 Diabetes panel 02/08/18 Range/Units 05:00 Sodium 139 (137-145) mmol/L Potassium 3.7 (3.6-5.0) mmol/L Chloride 99.2 (98-107) mmol/L Carbon Dioxide 27 (22-30) mmol/L BUN 6 L (7-17) mg/dL Creatinine 0.5 L (0.7-1.2) mg/dL Glucose 200 H (65-100) mg/dL Calcium 8.6 (8.4-10.2) mg/dL Calcium panel 02/08/18 Range/Units 05:00 Calcium 8.6 (8.4-10.2) mg/dL Pituitary panel 02/08/18 Range/Units 05:00 Sodium 139 (137-145) mmol/L Potassium 3.7 (3.6-5.0) mmol/L Chloride 99.2 (98-107) mmol/L Carbon Dioxide 27 (22-30) mmol/L BUN 6 L (7-17) mg/dL Creatinine 0.5 L (0.7-1.2) mg/dL Glucose 200 H (65-100) mg/dL Calcium 8.6 (8.4-10.2) mg/dL Adrenal panel 02/08/18 Range/Units 05:00 Sodium 139 (137-145) mmol/L Potassium 3.7 (3.6-5.0) mmol/L Chloride 99.2 (98-107) mmol/L Carbon Dioxide 27 (22-30) mmol/L BUN 6 L (7-17) mg/dL Creatinine 0.5 L (0.7-1.2) mg/dL Glucose 200 H (65-100) mg/dL Calcium 8.6 (8.4-10.2) mg/dL
[2018-02-08] MEDS: DILAUDID IV PRN ×2 (16:26→21:57)
[2018-02-08] MEDS: NACL 0.9% 1000 ML 1,000 ML IV SCH (21:52)
[2018-02-09] MEDS: DILAUDID IV PRN ×3 (02:49→14:15)
[2018-02-09 06:11] LABS: Hematocrit 34.1 % (30.3-42.9); Hemoglobin 11.5 gm/dl (10.1-14.3); Mean Corpuscular HGB Conc 34 % (30-34); Mean Corpuscular Hemoglobin 29 pg (28-32); Mean Corpuscular Volume 85 fl (79-97); Platelet Count 349 K/mm3 (140-440); Red Blood Count 4.02 M/mm3 (3.65-5.03); Red Cell Distribution Width 14.2 % (13.2-15.2)
[2018-02-09] MEDS: VANCOMYCIN 1,250 MG in NACL 0.9% 250ML 250 ML IV SCH ×2 (06:23→14:42)
[2018-02-09 06:29] LABS: BUN/Creatinine Ratio 12; Blood Urea Nitrogen 6 mg/dL (7-17); Calcium 8.7 mg/dL (8.4-10.2); Hemolysis Index 0
[2018-02-09] MEDS: MYCOSTATIN TP SCH ×2 (09:33→14:42)
[2018-02-09] MEDS: HumaLOG SUB-Q SCH ×3 (09:33→17:30)
[2018-02-09] MEDS: GLUCOPHAGE PO SCH (09:34)
[2018-02-09] MEDS: SODIUM CHLORIDE FLUSH SYRINGE 10 ML IV SCH (09:34)
[2018-02-09] MEDS: LOVENOX SUB-Q SCH (09:35)
[2018-02-09] MEDS: LEVAQUIN PO SCH (09:35)
[2018-02-09] MEDS: ROXICODONE PO PRN ×2 (09:41→18:17)
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
--- NOTE | 2018-02-09 14:05 | XRay Report ---
AP CHEST: 02/09/18 13:16 CLINICAL: PICC line insertion. COMPARISON: 04/05/17 FINDINGS: A left PICC line has been inserted and the PICC line tip is in the lower SVC near the cavoatrial junction. The heart is large. Normal pulmonary vessels. An aortic stent graft is new compared to the previous exam. Lungs are normally expanded and clear. No pneumothorax. IMPRESSION: Satisfactory PICC placement. Cardiomegaly but no CHF.
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
[2018-02-09 16:50] VITALS: BP 151/70
== END 2018-02-09 20:02 | disposition home health service (06) | DRG 872 ==
LOC: ED 22:43 → 3A 02-02 02:44
PROVIDERS: ADMIT Internal Medicine; ATTEND Internal Medicine
PROC: 0HBNXZZ Excision of Left Foot Skin, External Approach (ICD-10-PCS; principal; 2018-02-05)
PROC: 02HV33Z Insertion of Infusion Device into Superior Vena Cava, Percutaneous Approach (ICD-10-PCS; 2018-02-09)
DX: A41.9 Sepsis, unspecified organism (principal); L03.116 Cellulitis of left lower limb; L02.612 Cutaneous abscess of left foot; M86.8X7 Other osteomyelitis, ankle and foot; I10 Essential (primary) hypertension; F17.210 Nicotine dependence, cigarettes, uncomplicated; E66.9 Obesity, unspecified; E11.621 Type 2 diabetes mellitus with foot ulcer; E11.42 Type 2 diabetes mellitus with diabetic polyneuropathy; F15.10 Other stimulant abuse, uncomplicated; F12.10 Cannabis abuse, uncomplicated; M60.9 Myositis, unspecified; M25.472 Effusion, left ankle; Z83.3 Family history of diabetes mellitus; Z88.0 Allergy status to penicillin; Z71.6 Tobacco abuse counseling; Z91.040 Latex allergy status; Z68.37 Body mass index [BMI] 37.0-37.9, adult; Z82.49 Family history of ischemic heart disease and other diseases of the circulatory system
CPT/HCPCS: 36415; 71045; 80048; 80053; 80202; 80307; 81001; 82140; 82550; 82805; 82962; 85025; 85027; 85652; 86140; 87040; 87076; 87086; 87116; 87186; 93925; 96365; 96375; A9577; J1170; J1650; J1815; J1885; J1956; J2250; J2405; J2704; J3010; J3370; J7030; J7040; J7050

== ENCOUNTER 2018-02-10 23:54 | Emergency (ER) | payer OTHER ==
[2018-02-11] MEDS ORDERED: NACL 0.9% 1000 ML 1,000 ML IV ONE (07:38)
[2018-02-11] MEDS ORDERED: VANCOMYCIN PHARMACY TO DOSE IV SCH (08:00)
[2018-02-11 08:14] LABS: Basophils # (Auto) 0.1 K/mm3 (0.0-0.1); Basophils % (Auto) 1.2 % (0.0-1.8); Eosinophils # (Auto) 0.3 K/mm3 (0.0-0.4); Eosinophils % (Auto) 2.5 % (0.0-4.3); Hematocrit 37.2 % (30.3-42.9); Hemoglobin 12.2 gm/dl (10.1-14.3); Lymphocytes # (Auto) 1.9 K/mm3 (1.2-5.4); Lymphocytes % (Auto) 18.2 % (13.4-35.0); Mean Corpuscular HGB Conc 33 % (30-34); Mean Corpuscular Hemoglobin 29 pg (28-32); Mean Corpuscular Volume 87 fl (79-97); Monocytes % (Auto) 9.4 % (0.0-7.3); Platelet Count 392 K/mm3 (140-440); Red Blood Count 4.26 M/mm3 (3.65-5.03); Red Cell Distribution Width 14.3 % (13.2-15.2)
--- NOTE | 2018-02-11 08:17 | XRay Report ---
AP CHEST: HISTORY: Hypertension Borderline to mild cardiomegaly is stable since 02/09/18. Aortic stent is noted and unchanged. The lungs are generally clear with normal pulmonary vascularity. No pleural effusion or pneumothorax. Left arm PICC remains in the same position. IMPRESSION: Borderline cardiomegaly. Lungs clear.
[2018-02-11 08:25] LABS: INR 0.94 (0.87-1.13)
[2018-02-11] MEDS ORDERED: PERCOCET 5/325 PO ONE (08:26)
[2018-02-11 08:30] LABS: Creatine Kinase MB 2.4 ng/mL (0.0-4.0)
[2018-02-11 08:31] LABS: Alanine Aminotransferase 10 units/L (7-56); Albumin 3.1 g/dL (3.9-5); BUN/Creatinine Ratio 18; Blood Urea Nitrogen 9 mg/dL (7-17); Hemolysis Index 25
[2018-02-11 08:36] LABS: Bilirubin,Direct < 0.2 mg/dL (0-0.2)
[2018-02-11] MEDS ORDERED: ZOFRAN ONE (09:23)
[2018-02-11] MEDS ORDERED: MORPHINE ONE (09:23)
--- NOTE | 2018-02-11 09:39 | History and Physical Report ---
History of Present Illness Date of examination: 02/11/18 Medications and Allergies Allergies Allergy/AdvReac Type Severity Reaction Status Date / Time latex Allergy Rash Verified 10/24/17 15:36 Penicillins Allergy Swelling Verified 10/24/17 15:36 Home Medications Medication Instructions Recorded Confirmed Last Taken Type Levofloxacin [Levaquin TAB] 750 mg PO DAILY #34 tablet 02/09/18 Unknown Rx Vancomycin 1,500 mg IV Q12HR 34 Days mg 02/09/18 Unknown Rx metFORMIN [Glucophage] 500 mg PO QDDIAB #60 tablet 02/09/18 Unknown Rx traMADol [Ultram 50 MG tab] 50 mg PO Q6HR PRN #20 tablet 02/09/18 Unknown Rx Active Meds: Active Medications Vancomycin HCl (Vancomycin Pharmacy To Dose) 1 each IV PKCONSULT ELROY; Protocol Exam - Constitutional Vitals: Temp Pulse Resp BP Pulse Ox 98 F 109 H 18 132/78 99 02/11/18 01:48 02/11/18 01:48 02/11/18 01:48 02/11/18 01:48 02/11/18 01:48 Results - Labs CBC & Chem 7: 02/11/18 07:59 02/11/18 07:59 Labs: Abnormal lab results 02/11/18 02/11/18 Range/Units 07:59 07:59 [place] % (Auto) 9.4 H (0.0-7.3) % [place] # 1.0 H (0.0-0.8) K/mm3 Creatinine 0.5 L (0.7-1.2) mg/dL Glucose 155 H (65-100) mg/dL CK-MB (CK-2) Rel Index 6.3 H (0-4) Albumin 3.1 L (3.9-5) g/dL
[2018-02-11] MEDS ORDERED: MORPHINE IV ONE (09:50)
[2018-02-11] MEDS ORDERED: ZOFRAN IV ONE (09:50)
[2018-02-11] MEDS ORDERED: VANCOMYCIN 2,000 MG in NACL 0.9% 500 ML 500 ML IV ONE (10:30)
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
[2018-02-11 12:31] VITALS: BP 154/74
[2018-02-11] MEDS ORDERED: DILAUDID IV ONE (12:51)
--- NOTE | 2018-02-11 12:57 | Event Note ---
Date: 02/11/18 Called from ER to admit the patient. She refused to stay in the hospital, explained possible outcomes including, sepsis, loosing limb, bacteremia, endocarditis and even . She verbalized understanding, does not prefer to stay here or receive any treatment. She signed AMA. Will cancel admission orders.
[2018-02-11] MEDS ORDERED: VANCOMYCIN 1,500 MG in NACL 0.9% 500 ML 500 ML IV SCH (22:00)
== END 2018-02-11 13:30 | disposition home or self-care (01) ==
LOC: ED 23:54 → 3A 02-11 10:19 → UNDOADMIN 02-11 10:19 → 3A 02-11 11:13 → ED 02-11 13:30
DX: L03.116 Cellulitis of left lower limb (principal); M86.9 Osteomyelitis, unspecified; I10 Essential (primary) hypertension; E11.9 Type 2 diabetes mellitus without complications; G62.9 Polyneuropathy, unspecified; F17.200 Nicotine dependence, unspecified, uncomplicated; F15.10 Other stimulant abuse, uncomplicated; Z88.0 Allergy status to penicillin; Z91.040 Latex allergy status
CPT/HCPCS: 36415; 71045; 80048; 80074; 82140; 82550; 82553; 83735; 85025; 85610; 87040; 96361; 96365; 96375; 99284; J1170; J2270; J2405; J3370; J7030; J7040